=== PATIENT | male | born 1960 | race Asian ===

== ENCOUNTER 2020-07-28 19:58 | Emergency (ER) | payer OTHER, MEDICAID ==
[~2020-07-28] VITALS: Ht 167.6 cm; Wt 72.6 kg
[2020-07-28 20:00] VITALS: BP_SYST 148
[2020-07-28] MEDS ORDERED: DEXTROSE 50% JECT 50 ML DISP.SYRIN IVP ONE (20:15)
[2020-07-28 20:25] LABS: BASOPHILS # (AUTO) 0.1 K/uL (0.0-0.2); BASOPHILS % (AUTO) 1.3 % (0.0-2.0); EOSINOPHILS # (AUTO) 0.4 K/uL (0.0-0.4); EOSINOPHILS % (AUTO) 9.2 % (0.0-4.0); HEMATOCRIT 34.2 % (36-54); HEMOGLOBIN 11.1 g/dL (14.0-18.0); LYMPHOCYTES # (AUTO) 1.1 K/uL (1.0-5.5); LYMPHOCYTES % (AUTO) 23.2 % (20.5-51.5); MEAN CORPUSCULAR HEMOGLOBIN 26 pg (27-31); MEAN CORPUSCULAR HGB CONC 33 % (32-36); MEAN CORPUSCULAR VOLUME 79 fL (79.0-98.0); MONOCYTES # (AUTO) 0.4 K/uL (0.0-1.0); MONOCYTES % (AUTO) 7.8 % (1.7-9.3); NEUTROPHILS # (AUTO) 2.8 K/uL (1.8-7.7); NEUTROPHILS % (AUTO) 58.5 % (40.0-70.0); PLATELET COUNT (AUTO) 139 K/uL (130-430); RED BLOOD CELL COUNT(AUTO) 4.36 MIL/uL (4.2-6.2); WHITE BLOOD COUNT (AUTO) 4.8 K/uL (4.8-10.8)
[2020-07-28 20:45] LABS: CALCIUM 7.8 mg/dL (8.4-11.0); CREATININE 3.71 mg/dL (0.55-1.30); POTASSIUM 4.3 mmol/L (3.5-5.1)
[2020-07-28 20:51] LABS: ALBUMIN 3.5 g/dL (3.4-4.8); TOTAL BILIRUBIN 0.2 mg/dL (0.0-1.0)
[2020-07-28 21:34] LABS: BILIRUBIN,URINE NEGATIVE (NEGATIVE); BLOOD, URINE 1+ (NEGATIVE); CLARITY/URINE CLEAR (CLEAR); COLOR,URINE YELLOW (YELLOW); GLUCOSE,URINE NEGATIVE (NEGATIVE); KETONES,URINE NEGATIVE (NEGATIVE); LEUKOCYTE ESTERASE ,URINE NEGATIVE (NEGATIVE); NITRITE, URINE NEGATIVE (NEGATIVE); PROTEIN URINE 2+ (NEGATIVE); UROBILINOGEN,URINE 0.2 (0.2-1.0)
[2020-07-28 21:54] LABS: BACTERIA,URINE FEW /HPF (None Seen); RBC,URINE 0-3 /HPF (0-3)
[2020-07-28 21:58] LABS: MUCUS,URINE None Seen /LPF (None Seen)
[2020-07-28 21:59] LABS: FINE GRANULAR CASTS,URINE 0-10 /LPF (None Seen)
[2020-07-28 22:42] VITALS: BP_SYST 126
== END 2020-07-28 22:42 | disposition home or self-care (01) ==
LOC: SED 19:58
DX: E11.649 Type 2 diabetes mellitus with hypoglycemia without coma (principal); N28.9 Disorder of kidney and ureter, unspecified; I10 Essential (primary) hypertension
CPT/HCPCS: 36415; 71045; 80053; 81000-TC; 82962; 83605; 83880; 84484; 85025; 87040-TC; 87086; 93005; 96374; 99285

== ENCOUNTER 2021-05-28 07:40 | Emergency (ER) | payer OTHER, MEDICAID ==
[~2021-05-28] VITALS: Ht 162.6 cm; Wt 61.2 kg
[2021-05-28 07:44] VITALS: BP_SYST 122
[2021-05-28] MEDS ORDERED: FERR210T PO (08:02)
[2021-05-28] MEDS ORDERED: TRAZ-251 PO (08:02)
[2021-05-28] MEDS ORDERED: ATEN50TA PO (08:02)
[2021-05-28] MEDS ORDERED: SODI650T PO (08:02)
[2021-05-28] MEDS ORDERED: TAMS-11 PO (08:02)
[2021-05-28] MEDS ORDERED: NOR10 PO (08:02)
[2021-05-28] MEDS ORDERED: MORPHINE 2 MG/ML INJ. SYRINGE IVP ONE ×2 (08:15→08:45)
[2021-05-28 08:18] LABS: BASOPHILS % (AUTO) 0.3 % (0.0-2.0); HEMATOCRIT 27.3 % (36-54); HEMOGLOBIN 8.7 g/dL (14.0-18.0); LYMPHOCYTES # (AUTO) 0.5 K/uL (1.0-5.5); LYMPHOCYTES % (AUTO) 4.6 % (20.5-51.5); MEAN CORPUSCULAR HEMOGLOBIN 25 pg (27-31); MEAN CORPUSCULAR HGB CONC 32 % (32-36); MEAN CORPUSCULAR VOLUME 80 fL (79.0-98.0); MONOCYTES # (AUTO) 0.8 K/uL (0.0-1.0); MONOCYTES % (AUTO) 6.6 % (1.7-9.3); NEUTROPHILS # (AUTO) 10.3 K/uL (1.8-7.7); NEUTROPHILS % (AUTO) 88.5 % (40.0-70.0); PLATELET COUNT (AUTO) 101 K/uL (130-430); RED BLOOD CELL COUNT(AUTO) 3.43 MIL/uL (4.2-6.2); RED CELL DISTRIBUTION WIDTH 15.3 % (9.0-15.0); WHITE BLOOD COUNT (AUTO) 11.6 K/uL (4.8-10.8)
[2021-05-28 08:29] LABS: ANION GAP 16 (5-15); CALCIUM 7.4 mg/dL (8.4-11.0); CHLORIDE 92 mmol/L (98-107); CREATININE 4.96 mg/dL (0.55-1.30); GLUCOSE 387 mg/dL (70-99); POTASSIUM 3.5 mmol/L (3.5-5.1); SODIUM SERUM 132 mmol/L (136-145); UREA NITROGEN, BLOOD 58 mg/dL (8-21)
[2021-05-28 08:31] LABS: GFR AFRICAN AMERICAN 15 mL/min (>90)
[2021-05-28 08:33] LABS: INR 1.3 (0.80-1.20); PROTHROMBIN TIME 13.3 SECS (9.5-12.5)
[2021-05-28 08:36] LABS: ALANINE AMINOTRANSFERASE 19 U/L (12-78); ALBUMIN 2.6 g/dL (3.4-4.8); ASPARTATE AMINOTRANSFERASE 13 U/L (10-37); TOTAL BILIRUBIN 0.4 mg/dL (0.0-1.0)
[2021-05-28 08:53] LABS: ACETONE, SERUM NEGATIVE (NEGATIVE)
[2021-05-28] MEDS ORDERED: LEVO750T45 PO (08:55)
[2021-05-28] MEDS ORDERED: HYDR-3917 PO (08:55)
[2021-05-28] MEDS ORDERED: LEVOFLOXACIN IN DEXTROSE 5 % 100 ML IV ONE (09:30)
[2021-05-28 09:50] LABS: BILIRUBIN,URINE NEGATIVE (NEGATIVE); BLOOD, URINE 2+ (NEGATIVE); CLARITY/URINE CLEAR (CLEAR); COLOR,URINE YELLOW (YELLOW); GLUCOSE,URINE 3+ (NEGATIVE); KETONES,URINE NEGATIVE (NEGATIVE); LEUKOCYTE ESTERASE ,URINE NEGATIVE (NEGATIVE); NITRITE, URINE NEGATIVE (NEGATIVE); PH,URINE 5.5 (5.0-8.0); PROTEIN URINE 2+ (NEGATIVE); UROBILINOGEN,URINE 0.2 (0.2-1.0)
[2021-05-28] MEDS ORDERED: HYDROcodone/ACETAMIN 5-325 MG TAB (NORCO/ VICODIN) PO ONE (10:00)
[2021-05-28 10:02] LABS: BACTERIA,URINE FEW /HPF (None Seen); MUCUS,URINE 1+ /LPF (None Seen); URINE AMORPHOUS URATE 1+ /HPF (None Seen)
[2021-05-28 10:30] VITALS: BP_SYST 124
== END 2021-05-28 10:30 | disposition home or self-care (01) ==
LOC: SED 07:40
DX: J18.9 Pneumonia, unspecified organism (principal); I10 Essential (primary) hypertension; E11.9 Type 2 diabetes mellitus without complications; Z79.899 Other long term (current) drug therapy
CPT/HCPCS: 36415; 71045; 80053; 81000; 82009; 82550; 83605; 84484; 85025; 85610; 85730; 87040; 87086; 93005; 96374; 96376; 99285; J1956; J2270; 87186-TC

== ENCOUNTER 2021-05-29 06:53 | Inpatient (IN) | payer OTHER, MEDICAID, SELFPAY ==
[~2021-05-29] VITALS: Ht 170.2 cm; Wt 69.5 kg
[~2021-05-29 06:53] MED LIST: ATEN50TA PO; FERR210T PO; HYDR-3917 PO; LEVO750T45 PO; NOR10 PO; SODI650T PO; TAMS-11 PO; TRAZ-251 PO
--- NOTE | 2021-05-29 06:55 | NUR ---
Placed in room 3 . Placed on press feeder broomcorn, blood pressure machine and pulse oximeter. To gown for exam. Side rails up.
--- NOTE | 2021-05-29 07:00 | NUR ---
Pt bib EMS from home with c/o generalized weakness, per EMS glucose at home was in the 30's, d50 given in route. Other v/s stable, no acute distress noted.
--- NOTE | 2021-05-29 07:05 | NUR ---
ER Dr. Leal at bedside examining patient.
[2021-05-29 07:08] VITALS: BP_SYST 97
--- NOTE | 2021-05-29 07:08 | NUR ---
Radiology at bedside for CXR.
[2021-05-29 07:28] LABS: BASOPHILS # (AUTO) 0.1 K/uL (0.0-0.2); BASOPHILS % (AUTO) 0.7 % (0.0-2.0); EOSINOPHILS # (AUTO) 0.1 K/uL (0.0-0.4); LYMPHOCYTES # (AUTO) 0.8 K/uL (1.0-5.5); LYMPHOCYTES % (AUTO) 7.2 % (20.5-51.5); MEAN CORPUSCULAR HEMOGLOBIN 26 pg (27-31); MEAN CORPUSCULAR HGB CONC 32 % (32-36); MEAN CORPUSCULAR VOLUME 80 fL (79.0-98.0); NEUTROPHILS # (AUTO) 8.5 K/uL (1.8-7.7); NEUTROPHILS % (AUTO) 81.1 % (40.0-70.0); PLATELET COUNT (AUTO) 83 K/uL (130-430); WHITE BLOOD COUNT (AUTO) 10.5 K/uL (4.8-10.8)
[2021-05-29] MEDS ORDERED: DEXTROSE 50% JECT 50 ML DISP.SYRIN IVP ONE (07:30)
[2021-05-29 07:41] LABS: ANION GAP 9 (5-15); CHLORIDE 102 mmol/L (98-107); CREATININE 3.68 mg/dL (0.55-1.30); GLUCOSE 78 mg/dL (70-99); SODIUM SERUM 143 mmol/L (136-145); UREA NITROGEN, BLOOD 40 mg/dL (8-21)
[2021-05-29 07:43] LABS: GFR AFRICAN AMERICAN 22 mL/min (>90); POTASSIUM 2.8 mmol/L (3.5-5.1)
[2021-05-29 07:46] LABS: ALANINE AMINOTRANSFERASE 24 U/L (12-78); ALBUMIN 2.3 g/dL (3.4-4.8); TOTAL BILIRUBIN 0.5 mg/dL (0.0-1.0)
[2021-05-29 07:52] LABS: ASPARTATE AMINOTRANSFERASE 50 U/L (10-37)
[2021-05-29 08:08] LABS: ACETONE, SERUM NEGATIVE (NEGATIVE)
--- NOTE | 2021-05-29 08:19 | NUR ---
Med rec and belongings list completed. Pt's son at bedside and aware of admit.
[2021-05-29 08:22] LABS: C-REACTIVE PROTEIN QUANT 97.8 mg/dL (0-0.5)
--- NOTE | 2021-05-29 08:23 | NUR ---
Admit orders received from Dr. Silveira pt to go to Tele. Charge nurse Marnie, will call us back with bed assignment.
--- NOTE | 2021-05-29 09:01 | NUR ---
Patient will be admitted to care of Dr Silveira. Admitted to tele unit. Will go to room 100A. Belongings list completed. Complete and up to date summary report printed. SBAR report to be given at bedside with opportunity for questions.
[2021-05-29 09:27] VITALS: BP_SYST 153
--- NOTE | 2021-05-29 10:42 | NUR ---
Nutrition Update Sher Scale 16 noted. Pt admitted for hypoglycemia. Diet: renal BMI: 25.1 kg/m2 RD to follow per nutrition care standards.
[2021-05-29 12:00] VITALS: BP_SYST 102
--- NOTE | 2021-05-29 12:22 | NUR ---
ATTENDING MD DR SUMMERS WAS CALLED, RE: PAIN MEDICATION. SPOKE TO JU.
[2021-05-29] MEDS ORDERED: HYDROcodone/ACETAMIN 5-325 MG TAB (NORCO/ VICODIN) PO PRN ×2 (13:15→14:00)
--- NOTE | 2021-05-29 13:23 | NUR ---
BS=74
--- NOTE | 2021-05-29 13:25 | NUR ---
CONSULTATION: REASON FOR CONSULT: NEPHRO CONSULTING PHYSICIAN: CESAR ORDERED BY: KRISTOPHER SPOKE WITH KECIA FROM EXCHANGE [phone]
[2021-05-29] MEDS ORDERED: cloNIDine HCL 0.1 MG TABLET PO PRN (14:00)
[2021-05-29] MEDS ORDERED: NALOXONE HCL 0.4 MG/ML AMP (NARCAN) IVP PRN (14:00)
[2021-05-29] MEDS ORDERED: POTASSIUM CHLORIDE 20 MEQ TAB.PRT.SR PO ONE (14:00)
[2021-05-29] MEDS ORDERED: SODIUM BICARBONATE 650 MG TABLET PO ONE (14:00)
[2021-05-29] MEDS ORDERED: TAMSULOSIN HCL 0.4 MG CAP PO ONE (14:15)
--- NOTE | 2021-05-29 14:32 | NUR ---
CONSULTATION: REASON FOR CONSULT: ELEV TROP CONSULTING PHYSICIAN: LESTER ORDERED BY: KRISTOPHER SPOKE WITH SCOTTY [phone]
[2021-05-29] MEDS ORDERED: DEXTROSE 50% JECT 50 ML DISP.SYRIN IVP PRN (14:45)
[2021-05-29] MEDS ORDERED: DILTIAZEM HCL 30 MG TABLET PO ONE (15:15)
--- NOTE | 2021-05-29 15:28 | NUR ---
CONSULTATION: REASON FOR CONSULT: WEAKNESS CONSULTING PHYSICIAN: EDER ORDERED BY: KRISTOPHER SPOKE WITH SHERRI [phone]
[2021-05-29 16:00] VITALS: BP_SYST 94
--- NOTE | 2021-05-29 17:30 | NUR ---
Note Pt came to floor from ED at 0915am via gurney. Pt was moved to bed from [facility] with3 person assist. Pt was oriented to room and nursing routines and procedures. Pt was seen by Dr Silveira [address] Hsu at 1725 at bedside. Pt's son and have been visiting at bedside throughout the shift. No needs noted all shift. Pt's tele unit was attached at admission to floor/room at 0915am. Pt's IV in NOÉ on admission to ED. Pt has urinal at bedside throughout the shift. Pt feels weak and dizzy on sitting up in bed or ambulating - states he has fallen the last few days at home. Skin intact throughout body on admission to floor. Pt oriented to call light and call light within reach all shift. Pt's bed in low position and bed alarm on all shift.
--- NOTE | 2021-05-29 18:36 | NUR ---
PAGE PAGED DOCTOR HENRIQUEZ
--- NOTE | 2021-05-29 18:40 | NUR ---
NOTE Dr Wolf at bedside assessing pt. Order for [place] 7.5mg PO q4' given as pt in severe pain at this time. Pt attempting to eat his dinner at this time. 3 family members at bedside. Pt stable and pt was checked on q1' and PRN all shift for needs and care. Call light within reach.
[2021-05-29] MEDS: HYDROcodone/ACETAMIN 7.5-325 MG TAB PO PRN ×2 (18:45→22:46)
[2021-05-29] MEDS: NEPHROVITE, (FOLIC ACID/VITAMIN B COMP W-C 1 TAB) PO SCH (18:45)
--- NOTE | 2021-05-29 19:00 | NUR ---
Note Pt resting in bed with family at bedside. No needs noted. Pt aware he will be going down to CT dept for scans. Pt was checked on q1' and PRN all shift for needs and care. Pt's bed low position all shift. Call light within reach
--- NOTE | 2021-05-29 19:30 | NUR ---
OPENING NOTES: Received report from dayshift nurse. Patient is resting in bed, alert and oriented and with no s/s of distress or discomfort. He is on room air, appears to be tolerating well. Ensured all safety precautions. Bed is locked and in the lowest position. Call light within reach and alarm on.
[2021-05-29 20:00] VITALS: BP_SYST 103
--- NOTE | 2021-05-29 20:30 | NUR ---
PATIENT DID NOT EAT DINNER. EDUCATED PATIENT ABOUT THE IMPORTANCE OF EATING TO PREVENT HYPOGLYCEMIA. ENCOURAGED PATIENT TO EAT PUDDING AND APPLE SAUCE. PT HAD ABOUT 25% AND DRANK SOME CHOCOLATE MILK THAT WAS BROUGHT IN. PT DECLINED TO EAT MORE, STATES HE IS NOT HUNGRY.
[2021-05-29] MEDS ORDERED: SODIUM BICARBONATE 650 MG TABLET PO SCH (21:00)
[2021-05-29] MEDS: ATENOLOL 50 MG TABLET (TENORMIN) PO SCH (21:00)
[2021-05-29] MEDS ORDERED: DILTIAZEM HCL 30 MG TABLET PO SCH (21:00)
--- NOTE | 2021-05-29 21:00 | NUR ---
DIALYSIS NURSE AT BEDSIDE
--- NOTE | 2021-05-29 22:49 | NUR ---
PT'S BG WAS 78. HE IS ASYMPTOMATIC AND HAVING DIALYSIS. ENCOURAGED PATIENT TO HAVE SNACKS BUT HE STATES HE WILL ONLY DRINK HIS CHOCOLATE MILK. WILL CONTINUE TO EDUCATE AND ENCOURAGE PATIENT.
--- NOTE | 2021-05-29 23:40 | NUR ---
HIGH ALERT NOTE: Called Dr. Hsu back at [phone] identified within the medical roster to verify physician authenticity.
[2021-05-29] MEDS ORDERED: HEPARIN IV FLUSH 300 UNITS/3ML SYR INJ ONE (23:45)
[2021-05-29] MEDS ORDERED: HEPARIN SODIUM, PORCINE 10,000 UNITS/ 10 ML VIAL ONE (23:54)
[2021-05-30] VITALS: BP_SYST 122
--- NOTE | 2021-05-30 | NUR ---
PT TOLERATED DIALYSIS WELL. PER DIALYSIS NURSE PT WAS TO HAVE CLEANING ONLY AND NO OUTPUT. HE IS RESTING IN BED WITH NO S/S OF DISTRESS OR DISCOMFORT. WILL CONTINUE TO MONITOR.
--- NOTE | 2021-05-30 03:53 | NUR ---
PT'S BG IS 42. D50 WAS GIVEN AND GAVE PATIENT APPLE SAUCE. WILL RECHECK BLOOD SUGAR.
[2021-05-30] MEDS: HYDROcodone/ACETAMIN 7.5-325 MG TAB PO PRN ×3 (05:41→20:01)
[2021-05-30 06:44] LABS: BASOPHILS % (AUTO) 0.1 % (0.0-2.0); EOSINOPHILS % (AUTO) 0.4 % (0.0-4.0); HEMATOCRIT 27.7 % (36-54); HEMOGLOBIN 9.1 g/dL (14.0-18.0); LYMPHOCYTES # (AUTO) 0.5 K/uL (1.0-5.5); LYMPHOCYTES % (AUTO) 6.3 % (20.5-51.5); MEAN CORPUSCULAR HEMOGLOBIN 26 pg (27-31); MEAN CORPUSCULAR HGB CONC 33 % (32-36); MEAN CORPUSCULAR VOLUME 79 fL (79.0-98.0); MONOCYTES # (AUTO) 0.5 K/uL (0.0-1.0); MONOCYTES % (AUTO) 6.4 % (1.7-9.3); NEUTROPHILS # (AUTO) 7.4 K/uL (1.8-7.7); NEUTROPHILS % (AUTO) 86.8 % (40.0-70.0); PLATELET COUNT (AUTO) 75 K/uL (130-430); RED CELL DISTRIBUTION WIDTH 16.2 % (9.0-15.0); WHITE BLOOD COUNT (AUTO) 8.5 K/uL (4.8-10.8)
--- NOTE | 2021-05-30 07:02 | NUR ---
CLOSING NOTES: Patient is laying in bed, alert and oriented. Son is at bedside. He is in stable condition. BG this morning was 128 this morning. I encouraged and reminded patient to eat, he verbalized understanding. Patient ate apple sauce and pudding, tolerated well. All needs were me throughout shift. Will endorse to dayshift nurse.
[2021-05-30 07:59] LABS: CALCIUM 7.6 mg/dL (8.4-11.0); CREATININE 2.77 mg/dL (0.55-1.30); PHOSPHORUS 2.9 mg/dL (2.7-4.5); POTASSIUM 3.1 mmol/L (3.5-5.1)
[2021-05-30 08:00] VITALS: BP_SYST 120
[2021-05-30] MEDS ORDERED: POTASSIUM CHLORIDE 20 MEQ/PKT PACKET PO ONE (08:30)
[2021-05-30] MEDS ORDERED: amLODIPine BESYLATE 10 MG TABLET PO SCH (09:00)
[2021-05-30] MEDS: ATENOLOL 50 MG TABLET (TENORMIN) PO SCH ×2 (09:00→23:41)
[2021-05-30 09:36] LABS: TOTAL IRON BIND. CAPACITY 91 ug/dL (250-450)
[2021-05-30] MEDS: TAMSULOSIN HCL 0.4 MG CAP PO SCH (09:58)
--- NOTE | 2021-05-30 09:58 | NUR ---
CONSULTATION PAGED/CALLED Reason for Consultation: swallow eval Person Who was Notified:speech therapy called Gracy Ordering Physician: patel elder
[2021-05-30] MEDS: NEPHROVITE, (FOLIC ACID/VITAMIN B COMP W-C 1 TAB) PO SCH (09:59)
[2021-05-30 11:19] VITALS: BP_SYST 112
--- NOTE | 2021-05-30 14:51 | NUR ---
S.T. SWALLOW EVAL SWALLOW EVAL COMPLETED. PT PRESENTS W/ MOD ORAL DYSPHAGIA W/ PROLONGED AND LABORED MASTICATION RESULTING IN ORAL RESIDUE FOR SOLIDS. FUNCTIONAL PHARYNGEAL SWALLOW W/ NO S/S OF ASPIRATION. PT C/O FOOD NOT PASSING; HE WOULD VOLITIONALLY THROAT CLEAR OR COUGH TO ATTEMPT TO CLEAR BOLUS. PT ALSO C/O PAIN IN CHEST AFTER SWALLOW. ESOPHAGEAL DYSPHAGIA SUSPECTED. REC: MECH SOFT FINELY CHOPPED DIET. THIN LIQUIDS OK. CONSIDER ESOPHAGRAM TO FURTHER ASSESS ESOPHAGEAL SWALLOW (PER PT AND , PT DECLINES EGD). NURSE ASHLEY NOTIFIED.
[2021-05-30 15:22] VITALS: BP_SYST 119
--- NOTE | 2021-05-30 15:59 | NUR ---
Dietitian Recommendations * Recommend CCHO, mechanical soft, finely chopped diet w/ Nepro BID (ONS provides 850 kcal/day, 38 gm protein/day) * Encourage increase PO intakes LP, RD Please refer to Nutrition Assessment for details. Addendum: 05/30/21 at [address] Amended: Links added.
[2021-05-30] MEDS ORDERED: EPOETIN ALFA 10,000 UNITS/ML VIAL SUBCUT PRN (17:45)
--- NOTE | 2021-05-30 17:58 | NUR ---
CONSULTATION PAGED/CALLED Reason for Consultation: septisemia Person Who was Notified: JOHN SAID DR MODI REGISTRATION SCHEDULING SPECIALIST Consulting Physician: SHIMON SON Risk Modeler Specialty: INFECTIOUS DISEASE Ordering Physician: MADELIN SUMMERS
[2021-05-30] MEDS ORDERED: VANCOMYCIN HCL 500 MG in NS 100 ML IV ONE (18:00)
[2021-05-30] MEDS ORDERED: DEXTROSE 50% JECT 50 ML DISP.SYRIN IVP PRN (18:45)
[2021-05-30 19:00] VITALS: BP_SYST 127
--- NOTE | 2021-05-30 19:15 | NUR ---
change of shift.pt.presents hemo-dialysis session;awaiting.h/d nsg attending to pt.119-a. pt's family present.i have apprised the family of the tentative hour for h/d session.pt.presents perma-cath;location:rt.svc.intact.pt.presents iv access:location:lt.bicept.iv lock.pt.presents no av-shunts.old.i have performed tactile assessment upper extremities for evidence of absence av-shunts.pt.presents bedrest activity status.pt.stated he is anuric urinal w/in access of the pt.call light/telephone w/in access of the pt.
[2021-05-30 20:00] VITALS: BP_SYST 127
--- NOTE | 2021-05-30 20:00 | NUR ---
pt.assessed.v/s assessed values w/in normal limits.no c/o pain,nausea.iv access intact.urinal w/in access of the pt.i have apprised the pt.that snacks/beverages are available w/in the shift.pt.requested jello/apple juice provided to the pt.pt.capable to reposition self.urinal w/in access of the pt.i have inquired ofthe h/d nsg approximately hour of the h/d:100-a session.possible w/in the hour.i have apprised the pt.and family.call light/telephone w/in access of the pt.
--- NOTE | 2021-05-30 20:45 | NUR ---
pt;100-a h/d session has been iniated@this hour.
--- NOTE | 2021-05-30 21:00 | NUR ---
i have held the 2100 medications 2/t in progress h/d session.pt.requested additional jellos. provided to the pt.
--- NOTE | 2021-05-30 22:00 | NUR ---
pt.assessed.h/d session in progress.no c/o pain,nausea,no requests posited@this hour.urinal,call light/telephone w/in access of the pt.pt.capable to reposition self.
[2021-05-30] MEDS: HEPARIN SODIUM, PORCINE 10,000 UNITS/ 10 ML VIAL MC ONE ×2 (23:15→23:21)
[2021-05-30] MEDS: EPOETIN ALFA 10,000 UNITS/ML VIAL SUBCUT SCH ×2 (23:15→23:40)
--- NOTE | 2021-05-30 23:22 | NUR ---
HIGH ALERT NOTE: Called Dr. Ha back at [phone] identified within the medical roster to verify physician authenticity.
--- NOTE | 2021-05-30 23:30 | NUR ---
h/d session completed.2 litres exchanged.v/s assessed note b/p slight elevated status.
[2021-05-30] MEDS: traZODone HCL 50 MG TABLET (DESYREL) PO SCH ×2 (23:41)
[2021-05-30] MEDS: INSULIN REGULAR, HUMAN 100 UNITS/ML, 10 ML VIAL (humuLIN R) SUBCUT PRN (23:44)
--- NOTE | 2021-05-31 | NUR ---
pt.asSessed.v/s assessed values wnl.i have administered [id number];procrit;sq;due@1800p,vancomycin;abx ivpb due @1800p blood glucose ASsessed VALUE;272MG/dL.I HAVe ADminisTeRed 4-UNITS;REGUlAR ,\\ INSulIN. URINAL CALLIGHT/TELePHOINE W/IN ACCESS OF THe PT.
[2021-05-31 00:03] VITALS: BP_SYST 132
--- NOTE | 2021-05-31 01:45 | NUR ---
@approximately 0130a pt.was located on floor in pt's room per frank;cole.frank;mt was walking w/in the hallway and noted the pt's calling for assistance.frank noted pt.upon the floor.frank called for assistance.from the staff.ladarius;rn/dean,amy;ariadna strange;db tabares;rn, arrived to assist pt's return to bed.pt.assessed for injury/trauma.pt.absent skin trauma/contusions.pt.stated he was attempted to call someone via phone also assumed he was not in the correct pt.room.i telephoned /pt's ;savanah.apprised of the pt's fall absnt skin trauma,mcontison.no orders posited per .pt's savanah was apprised of the pt's.fall.fall interventions initiated:post fall huddle,post fall assessment,rir fall report.v/s assessed values w/in normal limits.note b/p wnl.02-sat%=96%@room air.
--- NOTE | 2021-05-31 02:00 | NUR ---
pt.assessed.pt.was transferred to room;105-a.pt. re-oriented to the new room.no c/o pain.no requests posited@his hour. pt.repositioned.pt.alerted to the call light/telephone placement w/in access of the pt.the urinal placed w/in access of the pt.
--- NOTE | 2021-05-31 02:15 | NUR ---
pt.assessed.pt.presents quiescent affect;calm,somnolent.per flacc pain mgx pt.absent facial grimaces/body posturing. call light/telephone,urinal w/in access of the pt.
--- NOTE | 2021-05-31 04:00 | NUR ---
pt.assessed pt.presents quiescent affect;somnolent.per flacc pain mgx pt.absent facial grimaces/body posturing. iv access intact iv fluids ns-flush infusing.pt.capable to reposition self.urinal,call light/telephone w/in access of the pt.
--- NOTE | 2021-05-31 06:00 | NUR ---
pt.assessed.pt.presents quiescent affect;somnolent.per flacc pain mgx pt.absent facial grimaces/body posturing.iv access Intact IV FlUIDS INFusing. NURPT.PT.capable to reposition self. urinal,call light/telephone w/in access of the pt.
--- NOTE | 2021-05-31 06:41 | NUR ---
blopod glucose assessed value;198mg/dl.per sliding scale no insulin required.
[2021-05-31 07:01] LABS: BASOPHILS % (AUTO) 0.2 % (0.0-2.0); EOSINOPHILS # (AUTO) 0.1 K/uL (0.0-0.4); EOSINOPHILS % (AUTO) 0.6 % (0.0-4.0); HEMATOCRIT 26.8 % (36-54); HEMOGLOBIN 8.7 g/dL (14.0-18.0); LYMPHOCYTES # (AUTO) 0.7 K/uL (1.0-5.5); LYMPHOCYTES % (AUTO) 7.1 % (20.5-51.5); MEAN CORPUSCULAR HEMOGLOBIN 26 pg (27-31); MEAN CORPUSCULAR HGB CONC 32 % (32-36); MEAN CORPUSCULAR VOLUME 80 fL (79.0-98.0); MONOCYTES # (AUTO) 0.7 K/uL (0.0-1.0); MONOCYTES % (AUTO) 7.5 % (1.7-9.3); NEUTROPHILS # (AUTO) 8.2 K/uL (1.8-7.7); NEUTROPHILS % (AUTO) 84.6 % (40.0-70.0); PLATELET COUNT (AUTO) 74 K/uL (130-430); RED BLOOD CELL COUNT(AUTO) 3.37 MIL/uL (4.2-6.2); RED CELL DISTRIBUTION WIDTH 15.8 % (9.0-15.0); WHITE BLOOD COUNT (AUTO) 9.7 K/uL (4.8-10.8)
[2021-05-31 07:30] LABS: ALBUMIN 1.9 g/dL (3.4-4.8); CALCIUM 7.6 mg/dL (8.4-11.0); CREATININE 2.83 mg/dL (0.55-1.30); POTASSIUM 3.6 mmol/L (3.5-5.1); TOTAL BILIRUBIN 0.4 mg/dL (0.0-1.0)
[2021-05-31 08:00] VITALS: BP_SYST 121
[2021-05-31] MEDS ORDERED: BARIUM SULFATE 135 ML SUSP.RECON (E-Z-HD) PO ONE (10:03)
[2021-05-31] MEDS: HYDROcodone/ACETAMIN 7.5-325 MG TAB PO PRN ×2 (10:15→18:02)
[2021-05-31] MEDS: NEPHROVITE, (FOLIC ACID/VITAMIN B COMP W-C 1 TAB) PO SCH (10:16)
[2021-05-31] MEDS: ATENOLOL 50 MG TABLET (TENORMIN) PO SCH ×2 (10:18→21:36)
[2021-05-31] MEDS: TAMSULOSIN HCL 0.4 MG CAP PO SCH (10:18)
[2021-05-31] MEDS: INSULIN REGULAR, HUMAN 100 UNITS/ML, 10 ML VIAL (humuLIN R) SUBCUT PRN ×3 (12:27→21:39)
[2021-05-31] MEDS ORDERED: VANCOMYCIN HCL 1,000 MG in NS 250 ML IV ONE (14:00)
[2021-05-31 15:20] VITALS: BP_SYST 123
--- NOTE | 2021-05-31 18:04 | NUR ---
ATTENDING MD DR SUMMERS WAS CALLED, RE: PAIN MED. SPOKE TO YASMIN.
[2021-05-31 20:00] VITALS: BP_SYST 132
[2021-05-31] MEDS: traZODone HCL 50 MG TABLET (DESYREL) PO SCH ×2 (21:00→21:36)
--- NOTE | 2021-05-31 22:19 | NUR ---
Desyrel 100 mg po patient refuse medication .
--- NOTE | 2021-05-31 22:20 | NUR ---
FALL Risk protocol bed ALARM is on patient awake alert family member @ the bedside procedures explained .
--- NOTE | 2021-05-31 22:37 | NUR ---
BED ALARM is on & working , patient awake call ventura with patient .
[2021-05-31] MEDS: HYDROcodone/ACETAMIN 5-325 MG TAB (NORCO/ VICODIN) PO PRN (23:17)
--- NOTE | 2021-06-01 00:46 | NUR ---
[place] 5/325 mg po given for general pain & helpful .
[2021-06-01 00:48] VITALS: BP_SYST 129
--- NOTE | 2021-06-01 01:17 | NUR ---
Hourly Rounding patient awake verbally Responsive , BED ALARM is ON fall measures effective continue to monitor .
[2021-06-01] MEDS: HYDROcodone/ACETAMIN 5-325 MG TAB (NORCO/ VICODIN) PO PRN (04:04)
--- NOTE | 2021-06-01 04:06 | NUR ---
PT CALLED AND C/O GENERALIZED PAIN TO HIS NECK BACK KNEES , MEDICATED WITH NORCO PER ORDER . PT SI ABLE TO SWALLOW WELL . NO S/S OF ANY ASPIRATION NOTICED. WILL CONTINUE TO MONITOR PT .
[2021-06-01] MEDS: INSULIN NPH 100 UNITS/ML 10 ML VIAL SUBCUT SCH (06:12)
[2021-06-01] MEDS: INSULIN REGULAR, HUMAN 100 UNITS/ML, 10 ML VIAL (humuLIN R) SUBCUT PRN ×4 (06:13→21:25)
[2021-06-01 06:55] LABS: BASOPHILS % (AUTO) 0.2 % (0.0-2.0); EOSINOPHILS # (AUTO) 0.2 K/uL (0.0-0.4); EOSINOPHILS % (AUTO) 2.1 % (0.0-4.0); HEMATOCRIT 27.3 % (36-54); HEMOGLOBIN 8.8 g/dL (14.0-18.0); LYMPHOCYTES % (AUTO) 9.5 % (20.5-51.5); MEAN CORPUSCULAR HEMOGLOBIN 26 pg (27-31); MEAN CORPUSCULAR HGB CONC 32 % (32-36); MEAN CORPUSCULAR VOLUME 79 fL (79.0-98.0); MONOCYTES # (AUTO) 0.7 K/uL (0.0-1.0); MONOCYTES % (AUTO) 6.7 % (1.7-9.3); NEUTROPHILS # (AUTO) 8.5 K/uL (1.8-7.7); NEUTROPHILS % (AUTO) 81.5 % (40.0-70.0); PLATELET COUNT (AUTO) 90 K/uL (130-430); RED BLOOD CELL COUNT(AUTO) 3.44 MIL/uL (4.2-6.2); WHITE BLOOD COUNT (AUTO) 10.4 K/uL (4.8-10.8)
[2021-06-01 07:21] LABS: CREATININE 4.27 mg/dL (0.55-1.30); POTASSIUM 4.1 mmol/L (3.5-5.1)
[2021-06-01 07:26] LABS: CALCIUM 6.9 mg/dL (8.4-11.0)
--- NOTE | 2021-06-01 07:35 | NUR ---
OPENING NOTES: RECEIVED PATIENT FROM MACHINIST 2ND SHIFT NURSE. PATIENT IS AWAKE LAYING DOWN IN BED. TOLERATED OXYGEN ON ROOM AIR WITH NO DISTRESS NOTED. IV LINE PATENT AND INTACT NO INFILTRATION NOTED. PATIENT STABLE AT THIS TIME. SAFETY, FALL, AND ASPIRATION PRECAUTIONS ARE IN PLACE. BED LOCKED IN LOWEST POSITION AND CALL LIGHT IN REACH. WILL CONTINUE TO MONITOR PATIENT FOR ANY CHANGES.
[2021-06-01 08:00] VITALS: BP_SYST 116
--- NOTE | 2021-06-01 08:16 | NUR ---
PAGED PAGED MADELIN SALEEM AT [phone] SPOKE WITH JOSE.
[2021-06-01] MEDS: TAMSULOSIN HCL 0.4 MG CAP PO SCH (08:17)
[2021-06-01] MEDS: NEPHROVITE, (FOLIC ACID/VITAMIN B COMP W-C 1 TAB) PO SCH (08:18)
[2021-06-01] MEDS: ATENOLOL 50 MG TABLET (TENORMIN) PO SCH ×2 (08:18→21:07)
[2021-06-01] MEDS: HYDROcodone/ACETAMIN 7.5-325 MG TAB PO PRN ×4 (08:19→21:08)
[2021-06-01] MEDS ORDERED: CHOLECALCIFEROL (VITAMIN D3) 2,000 UNIT TABLET PO ONE (10:15)
[2021-06-01 11:27] VITALS: BP_SYST 130
--- NOTE | 2021-06-01 11:27 | NUR ---
CONSULTATION PAGED/CALLED Reason for Consultation: [] dysphagia Person Who was Notified: [] Iraj Consulting Physician: [] Dr Mathis Stock Analyst Specialty: [] GI Ordering Physician: [] Dr Silveira
--- NOTE | 2021-06-01 11:57 | NUR ---
CM note: Discussed dcp to snf with pt. He agreed with snf per contracted insurance. Stated his and his son would not be able to help him . He wants to get stronger and able to walk better before going home. >> Faxed the dc order to [facility] dept tel , fax [phone]. >> Faxed the referral package to [facility], and [facility] attn admission dept. Addendum: 06/08/21 at 1534 by Genesis Palma RN late entry: per Dasha at [facility], stated Arnoldo is a delegated payer for snf transfer. CM would need to call Arnoldo instead.
[2021-06-01 15:41] VITALS: BP_SYST 120
[2021-06-01] MEDS: EPOETIN ALFA 10,000 UNITS/ML VIAL SUBCUT SCH (16:54)
--- NOTE | 2021-06-01 17:26 | NUR ---
CONSULTATION FOLLW-UP REASON FOR CONSULTATION:SEPTISEMIA WAS CONSULT CALED?Y PERSON WHO WAS NOTIFIED:CHECO CONSULTING PHYSICIAN:BRYAN ARRIAZA WIRING TECHNICIAN SPECIALTY:INFECTIOUS DISEASE WIRING TECHNICIAN PHONE NUMBER:[phone] REQUESTING PHYSICIAN:[facility]
--- NOTE | 2021-06-01 18:40 | NUR ---
CLOSING NOTES: PATIENT IS AWAKE LAYING DOWN IN BED. TOLERATED OXYGEN ON ROOM AIR WITH NO DISTRESS NOTED. IV LINE PATENT AND INTACT NO INFILTRATION NOTED. PATIENT STABLE AT THIS TIME. SAFETY, FALL, AND ASPIRATION PRECAUTIONS REMAINED IN PLACE. BED LOCKED IN LOWEST POSITION AND CALL LIGHT IN REACH. WILL ENDORSE PATIENT CARE TO ONCOMING STEM SIZER NURSE.
--- NOTE | 2021-06-01 19:35 | NUR ---
ROUNDS PATIENT RESTING COMFORTABLY IN BED, NOT IN DISTRESS, VITALS STABLE. DENIES ANY PAIN AT THIS TIME. ASSESSMENT DONE AND DOCUEMNTED. FAMILY AT THE BEDSIDE. NEEDS ATTENDED TO. SAFETY MEASURES IN PLACED. BED ALARM ON. CALL LIGHT PLACED WITHIN REACH.
[2021-06-01 20:00] VITALS: BP_SYST 118
[2021-06-01] MEDS ORDERED: NAFCILLIN SODIUM 2 GM VIAL ONE (20:15)
[2021-06-01] MEDS: NAFCILLIN SODIUM 2 GM in NS 100 ML IV SCH (20:57)
[2021-06-01] MEDS: traZODone HCL 50 MG TABLET (DESYREL) PO SCH (21:07)
--- NOTE | 2021-06-01 21:13 | NUR ---
MEDICATIONS DUE MEDICATIONS GIVEN SCHEDULED, TOLERATED WELL. WILL CONTINUE TO MONITOR.
[2021-06-02] VITALS: BP_SYST 124
[2021-06-02] MEDS: HYDROcodone/ACETAMIN 7.5-325 MG TAB PO PRN ×4 (03:11→21:16)
[2021-06-02] MEDS ORDERED: NAFCILLIN SODIUM 2 GM VIAL ONE (03:44)
[2021-06-02] MEDS: NAFCILLIN SODIUM 2 GM in NS 100 ML IV SCH ×4 (03:45→17:39)
--- NOTE | 2021-06-02 04:15 | NUR ---
PATIENT RESTING: Patient resting quietly. No acute distress noted. Vital signs within normal range.
[2021-06-02] MEDS: INSULIN REGULAR, HUMAN 100 UNITS/ML, 10 ML VIAL (humuLIN R) SUBCUT PRN ×4 (06:02→21:22)
[2021-06-02] MEDS: INSULIN NPH 100 UNITS/ML 10 ML VIAL SUBCUT SCH (06:36)
[2021-06-02 06:37] LABS: BASOPHILS % (AUTO) 0.4 % (0.0-2.0); EOSINOPHILS # (AUTO) 0.2 K/uL (0.0-0.4); EOSINOPHILS % (AUTO) 2.4 % (0.0-4.0); HEMATOCRIT 26.3 % (36-54); HEMOGLOBIN 8.5 g/dL (14.0-18.0); LYMPHOCYTES % (AUTO) 12.3 % (20.5-51.5); MEAN CORPUSCULAR HEMOGLOBIN 26 pg (27-31); MEAN CORPUSCULAR HGB CONC 32 % (32-36); MEAN CORPUSCULAR VOLUME 79 fL (79.0-98.0); MONOCYTES # (AUTO) 0.6 K/uL (0.0-1.0); MONOCYTES % (AUTO) 6.8 % (1.7-9.3); NEUTROPHILS # (AUTO) 6.4 K/uL (1.8-7.7); NEUTROPHILS % (AUTO) 78.1 % (40.0-70.0); PLATELET COUNT (AUTO) 92 K/uL (130-430); RED BLOOD CELL COUNT(AUTO) 3.32 MIL/uL (4.2-6.2); RED CELL DISTRIBUTION WIDTH 15.7 % (9.0-15.0); WHITE BLOOD COUNT (AUTO) 8.2 K/uL (4.8-10.8)
[2021-06-02 07:11] LABS: ALBUMIN 1.8 g/dL (3.4-4.8); CREATININE 5.2 mg/dL (0.55-1.30); POTASSIUM 4.4 mmol/L (3.5-5.1); TOTAL BILIRUBIN 0.8 mg/dL (0.0-1.0)
[2021-06-02 08:00] VITALS: BP_SYST 94
--- NOTE | 2021-06-02 08:00 | NUR ---
PATIENT IS AWAKE LAYING DOWN IN BED. TOLERATED OXYGEN ON ROOM AIR WITH NO DISTRESS NOTED. IV LINE PATENT AND INTACT NO INFILTRATION NOTED. PATIENT STABLE AT THIS TIME. SAFETY, FALL, AND ASPIRATION PRECAUTIONS ARE IN PLACE. BED LOCKED IN LOWEST POSITION AND CALL LIGHT IN REACH. WILL CONTINUE TO MONITOR.
[2021-06-02] MEDS: NEPHROVITE, (FOLIC ACID/VITAMIN B COMP W-C 1 TAB) PO SCH (08:29)
[2021-06-02] MEDS: TAMSULOSIN HCL 0.4 MG CAP PO SCH (08:29)
[2021-06-02] MEDS: CHOLECALCIFEROL (VITAMIN D3) 2,000 UNIT TABLET PO SCH (08:31)
[2021-06-02] MEDS: ATENOLOL 50 MG TABLET (TENORMIN) PO SCH ×2 (08:32→20:41)
--- NOTE | 2021-06-02 10:21 | NUR ---
Nutrition F/U Admitting Diagnosis: Hypoglycemia Medical History Comment: PMH: DM, HTN, ESRD on HD, HLD, polio, and BPH per physician notes Pt was also found w/ severe protein malnutrition per physician notes SARS-CoV-2 Ag (Rapid) Negative 05/29 Subjective Information: Pt seen in bed, reports that his appetite remains fair. Pt asked RD for food choices, and RD stated that dietetic aide will come to see pt for menu selection. Pt also admits to no BM since admission. Pt reports he continues to drink Nepro. RD encouraged pt to increase PO intake. Per EMR review, pt is for dialysis today, Hypoglycemia now resolved. Pt c/o generalized body ache. Per MD notes, pt will be scheduled for MRI of the lumbar spine. Pt was seen by speech therapist on 05/30 and noted that pt w/ moderate oral dysphagia and rec mechanical soft finely chopped. Pt declined EGD. Sher scale: 17, no skin issues documented. Per RN notes, non-pitting bilateral generalized edema. Current diet order remains appropriate. Current Diet Order/Nutrition Support: Mechanical soft finely chopped CCHO diet, Nepro BID x 3 days Pertinent Medications: nephrovite, VIT D, Insulin, Heparin, Desyrel Pertinent Labs: 06/02: NA 134L, K 4.4WNL, BG 324H, POC BG 328H, BUN 65H, Cre 5.2H Height: 5 feet 7.00 inches Weight: 161 pounds/ 73.928903 kilograms. New weight: 06/02 163#/ 74kg --2# wt gain possibly d/t fluid retention Body Mass Index: 25.21 kg/m2 [place]/Adjusted Body Weight: IBW: 148#/67 kg Estimated Energy Expenditure (kcals/day) 6812-4468 kcal/day (30-35 kcal/kg CBW d/t ESRD on HD) Estimated Protein Required (g/day) 88-110 gm/day (1.2-1.5 gm/kg CBW d/t ESRD on HD) Estimated Fluid Required (l/day) Per physician d/t ESRD Problem/Etiology/Signs/Symptoms Suboptimal nutritional intakes related to lack of appetite as evidenced by poor PO intake records. (*ongoing) Altered nutrition-related labs related to endocrine and renal dysfunction as evidenced by abnormal BG, K, BUN, and CRE lab values. (*ongoing) Expected Outcomes/Goals - Monitor appetite and PO intakes w/ goal of pt meeting at least 75% of estimated nutritional needs, labs trending WNL, normal GI function, and skin integrity/wt maintenance Dietitian Recommendations * Recommend continue CCHO, mechanical soft, finely chopped diet w/ Nepro BID (ONS provides 850 kcal/day, 38 gm protein/day) * Menu selection and maximum encouragement during meals. Follow Up High Risk: F/U in 2-3days
--- NOTE | 2021-06-02 10:36 | NUR ---
Dietitian Recommendations * Recommend continue CCHO, mechanical soft, finely chopped diet w/ Nepro BID (ONS provides 850 kcal/day, 38 gm protein/day) * Menu selection and maximum encouragement during meals. Please see Nutrition F/U note for details. JULIANA, RD
--- NOTE | 2021-06-02 10:50 | NUR ---
GI DOCTOR PAGED PAGED GILBERTO VAZQUEZ AT [phone] SPOKE WITH
[2021-06-02 12:22] VITALS: BP_SYST 94
--- NOTE | 2021-06-02 12:25 | NUR ---
PAGED PAGED MADELNI SALEEM AT [phone] SPOKE WITH DAVID.
--- NOTE | 2021-06-02 14:39 | NUR ---
CM note: Per Evita/[facility] , the pt is accepted but pending auth from insurance. Once the insurance approved, she will call back with bed assignment.--. Patient made aware and LVM to notified son,Dawson today. Per dr. Silveira, planning to dc pt tomorrow .
[2021-06-02 17:12] VITALS: BP_SYST 118
--- NOTE | 2021-06-02 18:45 | NUR ---
PATIENT IS AWAKE SITTING AT BEDSIDE VISITING WITH FAMILY. TOLERATED OXYGEN ON 2LPM NC WITH NO DISTRESS NOTED. IV LINE PATENT AND INTACT NO INFILTRATION NOTED. PATIENT STABLE AT THIS TIME. SAFETY, FALL, AND ASPIRATION PRECAUTIONS REMAINED IN PLACE. BED LOCKED IN LOWEST POSITION AND CALL LIGHT IN REACH. WILL ENDORSE PATIENT CARE TO ONCOMING NURSE.
--- NOTE | 2021-06-02 19:35 | NUR ---
RECEIVED REPORT FROM DAY RN. PATIENT SITTING IN BED WITH FAMILY AT BEDSIDE. RESPIRATIONS EVEN AND UNLABORED ON 2L NC. NO SIGNS OF DISTRESS NOTED. RIGHT CHEST PERMACATH NOTED. LFA IV 22G SALINE LOCKED. NO SIGNS OF INFILTRATION NOTED. PT INFORMED OF PLAN OF CARE FOR THE NIGHT. PATIENT VERBALIZED UNDERSTANDING. BED IN LOW AND LOCKED POSITION. PT EDUCATED ON USING URINAL AND USING CALL LIGHT IF ASSISTANCE NEEDED. PT VERBALIZED UNDERSTANDING. CALL LIGHT WITHIN REACH. SAFETY/FALL PRECAUTIONS IN PLACE. WILL CONTINUE TO MONITOR.
[2021-06-02 20:00] VITALS: BP_SYST 102
[2021-06-02] MEDS: traZODone HCL 50 MG TABLET (DESYREL) PO SCH (20:35)
--- NOTE | 2021-06-02 21:16 | NUR ---
PAIN MEDICATION ADMINISTERED PT C/O PAIN TO LOWER BACK. PRN PAIN MED ADMINISTERED. PT TOLERATED WELL.
[2021-06-03] VITALS: BP_SYST 98
[2021-06-03] MEDS: NAFCILLIN SODIUM 2 GM in NS 100 ML IV SCH ×4 (00:05→18:02)
[2021-06-03 02:26] VITALS: BP_SYST 124
[2021-06-03] MEDS: HYDROcodone/ACETAMIN 7.5-325 MG TAB PO PRN ×4 (02:26→20:17)
--- NOTE | 2021-06-03 02:26 | NUR ---
PAIN MEDICATION ADMINISTERED PT C/O LOWER BACK PAIN. THROBBING. PT REPOSITIONED, CLEANED AND PRN PAIN MEDICATION GIVEN. VS WNL.
--- NOTE | 2021-06-03 03:03 | NUR ---
PT REQUESTS TO SIT IN CHAIR. EDUCATED PT ON FALL AND SAFETY RISK WHEN TRYING TO STAND/WALK FROM BED TO CHAIR AFTER PAIN MEDICATION GIVEN. PT ENCOURAGED TO STAY IN BED AND ABLE TO REPOSITION PT TO COMFORT LEVEL. PT VERBALIZED UNDERSTANDING.
--- NOTE | 2021-06-03 06:02 | NUR ---
XAVI DAWKINS I SPOKE WITH BECKI MELENDREZ
--- NOTE | 2021-06-03 06:22 | NUR ---
SPOKE WITH DR. DAWKINS PER MD, HOLD SCHEDULED MORNING HUMULIN NPH. CONTINUE WITH 2U REGULAR INSULIN PER SLIDING SCALE OF PT BS 220. READ BACK ORDER. VERIFIED WITH MD. INFORMED PT OF INSULIN MEDICATION CHANGE. PT VERBALIZED UNDERSTANDING.
--- NOTE | 2021-06-03 06:30 | NUR ---
SPOKE TO OUTPATIENT RN. PER RN. PT WILL BE PICKED UP AT 0800 FOR GI PROCEDURE.
[2021-06-03] MEDS: INSULIN NPH 100 UNITS/ML 10 ML VIAL SUBCUT SCH (06:41)
[2021-06-03] MEDS: INSULIN REGULAR, HUMAN 100 UNITS/ML, 10 ML VIAL (humuLIN R) SUBCUT PRN ×3 (06:47→20:24)
[2021-06-03 07:00] LABS: BASOPHILS % (AUTO) 0.5 % (0.0-2.0); EOSINOPHILS # (AUTO) 0.2 K/uL (0.0-0.4); EOSINOPHILS % (AUTO) 2.7 % (0.0-4.0); HEMATOCRIT 27.7 % (36-54); HEMOGLOBIN 8.8 g/dL (14.0-18.0); LYMPHOCYTES % (AUTO) 11.9 % (20.5-51.5); MEAN CORPUSCULAR HEMOGLOBIN 26 pg (27-31); MEAN CORPUSCULAR HGB CONC 32 % (32-36); MEAN CORPUSCULAR VOLUME 80 fL (79.0-98.0); MONOCYTES # (AUTO) 0.7 K/uL (0.0-1.0); MONOCYTES % (AUTO) 8.1 % (1.7-9.3); NEUTROPHILS # (AUTO) 6.7 K/uL (1.8-7.7); NEUTROPHILS % (AUTO) 76.8 % (40.0-70.0); PLATELET COUNT (AUTO) 121 K/uL (130-430); RED BLOOD CELL COUNT(AUTO) 3.47 MIL/uL (4.2-6.2); RED CELL DISTRIBUTION WIDTH 15.9 % (9.0-15.0); WHITE BLOOD COUNT (AUTO) 8.7 K/uL (4.8-10.8)
[2021-06-03 07:27] LABS: CREATININE 3.92 mg/dL (0.55-1.30); POTASSIUM 4.4 mmol/L (3.5-5.1)
[2021-06-03 08:02] VITALS: BP_SYST 118
--- NOTE | 2021-06-03 08:15 | NUR ---
ASSUMPTION OF CARE: RECEIVED PT A/A/OX4, DX: ELECTROLYTE IMBALANCE, R/T HYPOGLYCEMIA, VSS, AFEBRILE, BREATH SOUNDS ARE CLEAR, BREATHING UNLABORED, SATURATING 94-95% WHILE ON 2L O2 VIA N/C, NO S/S OF DISTRESS, PULSES PALPABLE, IV SITE INTACT, PATENT, NO REDNESS OR SWELLING, ORIENTED TO UNIT, CALL LIGHT PLACED WITHIN REACH, WILL CONT' TO MONITOR AND ASSESS.
[2021-06-03] MEDS ORDERED: fentaNYL CITRATE/PF 100 MCG/2 ML AMP ONE (08:19)
[2021-06-03] MEDS ORDERED: SIMETHICONE 40 MG/0.6 ML ML ONE (08:19)
[2021-06-03] MEDS ORDERED: MIDAZOLAM HCL 5 MG/5 ML VIAL ONE (08:20)
[2021-06-03] MEDS ORDERED: BENZOCAINE 20% 0.5mL UD SPRAY MM ONE (08:20)
--- NOTE | 2021-06-03 09:00 | NUR ---
GI LAB: PT TRANSPORTED TO GI LAB FOR SCHEDULE EGD IN STABLE CONDITION, VIA BED, TOLERATING WELL, ACCOMPANIED BY GI STAFF, WILL CONT' WITH POC.
[2021-06-03 09:25] LABS: VANCOMYCIN,RANDOM 11.4 ug/mL
--- NOTE | 2021-06-03 10:00 | NUR ---
NURSES NOTES: PT RETURNED TO ROOM IN STABLE CONDITION, VSS, NO DISTRESS NOTED, C/O PAIN 7/10 VIA NUMERIC SCALE. WILL MEDICATE PRESCRIBED BY Angel, CALL LIGHT WITHIN REACH, WILL CONT' TO MONITOR AND ASSESS.
[2021-06-03] MEDS: TAMSULOSIN HCL 0.4 MG CAP PO SCH (10:04)
[2021-06-03] MEDS: CHOLECALCIFEROL (VITAMIN D3) 2,000 UNIT TABLET PO SCH (10:04)
[2021-06-03] MEDS: NEPHROVITE, (FOLIC ACID/VITAMIN B COMP W-C 1 TAB) PO SCH (10:04)
--- NOTE | 2021-06-03 10:05 | NUR ---
RIG HAND: MORNING MEDS GIVEN, PER ORDERED BY Angel, TOLERATED WELL, WILL CONT' TO MONITOR AND ASSESS.
[2021-06-03] MEDS: ATENOLOL 50 MG TABLET (TENORMIN) PO SCH ×2 (10:09→20:17)
[2021-06-03 11:27] VITALS: BP_SYST 119
--- NOTE | 2021-06-03 12:00 | NUR ---
GLUCOSE MONITORING: BLOOD SUGAR [id number], NO COVERAGE REQUIRED AT THIS TIME, CONDITION IS STABLE, NEEDS MET, ASSISTED TO CHAIR, WILL REMAIN IN CHAIR DURING LUNCH, CALL LIGHT WITHIN REACH, WILL CONT' TO MONITOR AND ASSESS.
[2021-06-03] MEDS ORDERED: VANCOMYCIN HCL 500 MG in NS 100 ML IV ONE (13:00)
--- NOTE | 2021-06-03 15:21 | NUR ---
CM note: booked with Sejal at [employer] [facility] service/[facility]/[place], booking ref # [id number], tel # [phone]. She will give the booking to dispatcher who will call Jany/nursing unit with the pick time. -- Jany made aware, dc package placed in nursing unit. Pt's son made aware and he agreed with the transfer to [facility] today. Addendum: 06/03/21 at 1636 by Genesis Palma RN >> Cancelled the transportation with Ivelisse at [employer] transportation service. The discharge is pending clearance from ID and I received a call from Evita that she has not received the authorization from [facility], so that she can not take the transfer yet.
--- NOTE | 2021-06-03 15:41 | NUR ---
PAGED PAGED MADELIN SALEEM AT [phone] SPOKE WITH DAVID.
[2021-06-03 15:42] VITALS: BP_SYST 108
--- NOTE | 2021-06-03 17:30 | NUR ---
GLUCOSE MONITORING: BLOOD SUGAR BIJKY=[id number], 4 UNITS REGULAR INSULIN GIVEN SQ AT THIS TIME, TOLERATED WELL, CONDITION IS STABLE, FAMILY AT BEDSIDE, WILL CONT' TO MONITOR.
[2021-06-03] MEDS: EPOETIN ALFA 10,000 UNITS/ML VIAL SUBCUT SCH (18:05)
--- NOTE | 2021-06-03 19:30 | NUR ---
OPENING NOTES RECEIVED REPORT FROM DAY SHIFT RN. PT RESTING IN BED, ALERT & ORIENTED X4. BREATHING EVEN AND UNLABORED TO ROOM AIR. NO S/S OF ACUTE DISTRESS NOTED. IV ON LEFT UPPER ARM 22G INTACT, NO SIGNS OF INFILTRATION NOTED. RIGHT CHEST PERMACATH CLEAN, DRY, AND INTACT. BED ALARM ON, LOCKED IN LOWEST POSITION. CLOSE TO NURSING STATION. SIDE RAILS UP X3. SAFETY AND FALL PRECAUTIONS ARE IN PLACE. WILL MONITOR.
[2021-06-03 20:00] VITALS: BP_SYST 121
[2021-06-03] MEDS: traZODone HCL 50 MG TABLET (DESYREL) PO SCH (20:17)
[2021-06-04] MEDS: NAFCILLIN SODIUM 2 GM in NS 100 ML IV SCH ×6 (00:23→18:22)
[2021-06-04] MEDS: HYDROcodone/ACETAMIN 7.5-325 MG TAB PO PRN ×5 (00:23→20:54)
[2021-06-04 00:28] VITALS: BP_SYST 125
[2021-06-04] MEDS: INSULIN NPH 100 UNITS/ML 10 ML VIAL SUBCUT SCH (06:17)
[2021-06-04] MEDS: INSULIN REGULAR, HUMAN 100 UNITS/ML, 10 ML VIAL (humuLIN R) SUBCUT PRN ×3 (06:18→20:58)
--- NOTE | 2021-06-04 06:40 | NUR ---
PT REFUSED ANTIBIOTICS AT THIS TIME. PT STATED "I WANT TO TALK TO DOCTOR FIRST AND WILL THINK ABOUT LATER." EDUCATED PT REGARDING BENEFITS AND POTENTIAL SIDE EFFECTS OF ANTIBIOTICS, PT STILL REFUSED AND VERY UPSET.
[2021-06-04 07:27] LABS: CREATININE 4.51 mg/dL (0.55-1.30); POTASSIUM 4.2 mmol/L (3.5-5.1); VANCOMYCIN,RANDOM 13.3 ug/mL
[2021-06-04 07:31] LABS: CALCIUM 6.6 mg/dL (8.4-11.0)
[2021-06-04 08:00] VITALS: BP_SYST 112
--- NOTE | 2021-06-04 08:00 | NUR ---
initial notes rec patient in bed and with ivl out. resp easy and unlabored. no sob noted. call light within reached .bed to the lowest position and side rails up and locked. perma cath intact on the r upper chest. seen by dr tavarez at bedside and with orders.
[2021-06-04] MEDS: ATENOLOL 50 MG TABLET (TENORMIN) PO SCH ×2 (09:00→20:54)
--- NOTE | 2021-06-04 09:24 | NUR ---
CONSULTATION: REASON FOR CONSULT: REMOVE HD CATHETER CONSULTING PHYSICIAN: ZAHRA MA ORDERED BY: CESAR SPOKE WITH LATANYA [phone]
[2021-06-04] MEDS: CHOLECALCIFEROL (VITAMIN D3) 2,000 UNIT TABLET PO SCH (09:54)
[2021-06-04] MEDS: TAMSULOSIN HCL 0.4 MG CAP PO SCH (09:54)
[2021-06-04] MEDS: NEPHROVITE, (FOLIC ACID/VITAMIN B COMP W-C 1 TAB) PO SCH (09:54)
[2021-06-04 11:38] VITALS: BP_SYST 104
[2021-06-04] MEDS: HEPARIN SODIUM, PORCINE 10,000 UNITS/ 10 ML VIAL MC PRN (12:33)
--- NOTE | 2021-06-04 13:02 | NUR ---
rounds dialysis completed at bedside.
--- NOTE | 2021-06-04 13:03 | NUR ---
Insurance denied authorization for SNF level of care according to [facility] SNF community service officer coordinator.
--- NOTE | 2021-06-04 13:51 | NUR ---
Patient feels too weak to participate in treatment at this time. He received dialysis treatment earlier. Plan: attempt treatment tomorrow.
[2021-06-04] MEDS ORDERED: VANCOMYCIN HCL 750 MG/NS 250 ML IV ONE (15:00)
[2021-06-04 15:58] VITALS: BP_SYST 144
--- NOTE | 2021-06-04 16:00 | NUR ---
rounds seen by dr Myles and talk to patient's son. still waiting for dr morris to see patient.
--- NOTE | 2021-06-04 19:30 | NUR ---
OPENING NOTES RECEIVED REPORT FROM DAY SHIFT RN. PT SLEEPING, CHEST RISE AND FALL SYMMETRICAL. NO SIGNS OF RESPIRATORY DISTRESS NOTED. O2 SAT 95%. IV ON LEFT WRIST 20G INTACT, SL. NO SIGNS OF INFILTRATION NOTED. CALL LIGHT WITHIN REACH. SIDE RAILS UP X3. BED ALARM ON, LOCKED IN LOWEST POSITION. CLOSE TO NURSING STATION. SAFETY AND FALL PRECAUTIONS ARE IN PLACE. WILL CONTINUE TO MONITOR.
[2021-06-04 20:00] VITALS: BP_SYST 138
[2021-06-04] MEDS: traZODone HCL 50 MG TABLET (DESYREL) PO SCH (20:53)
--- NOTE | 2021-06-04 21:48 | NUR ---
TRANSFER OF CARE GIVEN REPORT TO EMELYN RAPHAEL.
[2021-06-05 00:50] VITALS: BP_SYST 140
[2021-06-05] MEDS: NAFCILLIN SODIUM 2 GM in NS 100 ML IV SCH ×5 (00:58→23:54)
[2021-06-05] MEDS: HYDROcodone/ACETAMIN 7.5-325 MG TAB PO PRN ×5 (00:59→20:36)
[2021-06-05] MEDS: INSULIN NPH 100 UNITS/ML 10 ML VIAL SUBCUT SCH (06:41)
[2021-06-05] MEDS: INSULIN REGULAR, HUMAN 100 UNITS/ML, 10 ML VIAL (humuLIN R) SUBCUT PRN ×4 (06:42→21:21)
[2021-06-05 06:55] LABS: BASOPHILS # (AUTO) 0.1 K/uL (0.0-0.2); BASOPHILS % (AUTO) 0.7 % (0.0-2.0); EOSINOPHILS # (AUTO) 0.1 K/uL (0.0-0.4); EOSINOPHILS % (AUTO) 1.7 % (0.0-4.0); HEMATOCRIT 29.6 % (36-54); HEMOGLOBIN 9.4 g/dL (14.0-18.0); LYMPHOCYTES # (AUTO) 1.1 K/uL (1.0-5.5); LYMPHOCYTES % (AUTO) 14.4 % (20.5-51.5); MEAN CORPUSCULAR HEMOGLOBIN 25 pg (27-31); MEAN CORPUSCULAR HGB CONC 32 % (32-36); MEAN CORPUSCULAR VOLUME 80 fL (79.0-98.0); MONOCYTES # (AUTO) 0.6 K/uL (0.0-1.0); MONOCYTES % (AUTO) 7.3 % (1.7-9.3); NEUTROPHILS # (AUTO) 5.8 K/uL (1.8-7.7); NEUTROPHILS % (AUTO) 75.9 % (40.0-70.0); PLATELET COUNT (AUTO) 212 K/uL (130-430); RED BLOOD CELL COUNT(AUTO) 3.73 MIL/uL (4.2-6.2); RED CELL DISTRIBUTION WIDTH 16.2 % (9.0-15.0); WHITE BLOOD COUNT (AUTO) 7.6 K/uL (4.8-10.8)
--- NOTE | 2021-06-05 07:04 | NUR ---
CLOSING NOTES PATIENT RESTING, NO SIGNS OF DISTRESS NOTED. CALL LIGHT WITHIN REACH, PATIENT USED CALL LIGHT THROUGHOUT SHIFT. FALL, ASPIRATION, RESPIRATORY, ISOLATION AND SAFETY PRECAUTIONS IN PLACE THROUGHOUT SHIFT. ALL NEEDS MET THROUGHOUT SHIFT. WILL ENDORSE CARE TO ONCOMING SHIFT.
[2021-06-05 07:24] LABS: CREATININE 3.56 mg/dL (0.55-1.30); POTASSIUM 4.4 mmol/L (3.5-5.1)
--- NOTE | 2021-06-05 07:24 | NUR ---
REMINDED THE CONSULT CALLED YESTERDAY TO DR Jason MA. SPOKE TO MARK (EXCHANGE) TO REMIND THE MD OF THE CONSULT
[2021-06-05 08:00] VITALS: BP_SYST 105
[2021-06-05] MEDS: TAMSULOSIN HCL 0.4 MG CAP PO SCH (08:31)
[2021-06-05] MEDS: CHOLECALCIFEROL (VITAMIN D3) 2,000 UNIT TABLET PO SCH (08:31)
[2021-06-05] MEDS: NEPHROVITE, (FOLIC ACID/VITAMIN B COMP W-C 1 TAB) PO SCH (08:31)
[2021-06-05] MEDS: ATENOLOL 50 MG TABLET (TENORMIN) PO SCH ×3 (08:31→20:44)
[2021-06-05 11:24] VITALS: BP_SYST 131
[2021-06-05] MEDS ORDERED: LIDOCAINE 1%, 20 ML MDV 20 ML ONE (11:26)
[2021-06-05] MEDS ORDERED: LIDOCAINE 1% 10 MG/ML, 20 ML MDV INJ ONE (11:30)
--- NOTE | 2021-06-05 12:03 | NUR ---
rounds dr carlee morris came and pulled out perma cath at bedside. swab the post site of the perma cath and was sent to lab for c/s. no bleeding noted on the site. dressing intact. will monitor for any bleeding
[2021-06-05 15:25] VITALS: BP_SYST 111
--- NOTE | 2021-06-05 16:00 | NUR ---
Nutrition F/U Admitting Diagnosis: Hypoglycemia Medical History Comment: PMH: DM, HTN, ESRD on HD, HLD, polio, and BPH per physician notes Pt was also found w/ severe protein malnutrition per physician notes SARS-CoV-2 Ag (Rapid) Negative 05/29 Subjective Information: RD visited pt at bedside earlier today. Pt's family was present at bedside as well. Pt reported good appetite, no N/V/C/D. Pt stated that he is still having difficulty swallowing and prefers finely chopped foods. Pt was recently placed on solely mechanical soft diet. Pt also requested prune juice and menu selections for dinner -- RD notified FNS staff. RN reported that pt had permacath removed by thoracic surgeon earlier today, and it will likely be replacement next week. RN also stated that pt usually receives dialysis 3x/week (TuThSat). Per EMR review, PO intake average of 54% x6 meals; last BM x3 06/05; Sher scale: 18, no PIs noted. Pt's appetite is improving since admission. RD provided F/U nutrition education per request. Additional nutrition education handouts provided from the AND Nutrition Care Manual and NIH for diabetes and renal nutrition management. Current Diet Order/Nutrition Support: Mechanical soft x2 days Pertinent Medications: nephrovite, VIT D, Insulin, Heparin, Desyrel Pertinent Labs: Na 138 WNL, BG 205 H, POC BG 206 H, BUN 33 H, CRE 3.56 H Height: 5'7"/67" Weight: 161#/73 kilograms. New weight: 06/02: 163#/74kg (06/02); 166#/75 kg (06/04) --3# wt gain possibly d/t fluid retention Body Mass Index: 25.21 kg/m2. New BMI: 26.1 kg/m2 (06/04) [place]/Adjusted Body Weight: IBW: 148#/67 kg Estimated Energy Expenditure (kcals/day) 4571-5798 kcal/day (30-35 kcal/kg CBW d/t ESRD on HD) Estimated Protein Required (g/day) 88-110 gm/day (1.2-1.5 gm/kg CBW d/t ESRD on HD) Estimated Fluid Required (l/day) Per physician d/t ESRD Problem/Etiology/Signs/Symptoms Suboptimal nutritional intakes related to lack of appetite as evidenced by poor PO intake records. (*improving) Altered nutrition-related labs related to endocrine and renal dysfunction as evidenced by abnormal BG, K, BUN, and CRE lab values. (*ongoing) Expected Outcomes/Goals - Monitor appetite and PO intakes w/ goal of pt meeting at least 75% of estimated nutritional needs, labs trending WNL, normal GI function, and skin integrity/wt maintenance Dietitian Recommendations * Re-implement CCHO, mechanical soft, finely chopped diet w/ Nepro BID (ONS provides 850 kcal/day, 38 gm protein/day) Follow Up Moderate Risk: F/U in 3-5 days
--- NOTE | 2021-06-05 16:09 | NUR ---
Dietitian Recommendations * Re-implement CCHO, mechanical soft, finely chopped diet w/ Nepro BID (ONS provides 850 kcal/day, 38 gm protein/day) LP, RD Please refer to Nutrition F/U for details.
[2021-06-05] MEDS: EPOETIN ALFA 10,000 UNITS/ML VIAL SUBCUT SCH (16:53)
--- NOTE | 2021-06-05 19:30 | NUR ---
Opening notes Received report. Patient is resting in bed, no signs of distress noted. Breathing even and unlabored on room air. IV patent and intact, no signs of infiltration noted. No needs at this time. call light with the patient. Safety precautions in place. Family at bedside.
[2021-06-05 20:50] VITALS: BP_SYST 132
[2021-06-05] MEDS: traZODone HCL 50 MG TABLET (DESYREL) PO SCH (21:57)
--- NOTE | 2021-06-06 00:30 | NUR ---
RN rounds Assisted patient to stand and use urinal. Minimum assistance required. Patient voided. Patient assisted back into bed. No other needs. Call light with the patient. Safety precautions in place.
[2021-06-06] MEDS: HYDROcodone/ACETAMIN 7.5-325 MG TAB PO PRN ×5 (00:45→22:27)
[2021-06-06 00:58] VITALS: BP_SYST 142
--- NOTE | 2021-06-06 05:00 | NUR ---
IV insertion IV removed by patient. Catheter tip intact and discarded. New IV inserted on LFA 22 gauge with good blood return and flushes well.
[2021-06-06] MEDS: NAFCILLIN SODIUM 2 GM in NS 100 ML IV SCH ×3 (06:05→17:45)
[2021-06-06] MEDS: INSULIN NPH 100 UNITS/ML 10 ML VIAL SUBCUT SCH (06:12)
--- NOTE | 2021-06-06 06:58 | NUR ---
Closing notes Patient is sitting in bedside chair. No signs of distress noted. Breathing even and unlabored on room air. IV patent and intact, no signs of infiltration noted. All needs met throughout the shift. call light with the patient. Safety precautions in place. Will endorse care to day shift RN.
[2021-06-06 08:00] VITALS: BP_SYST 121
--- NOTE | 2021-06-06 08:00 | NUR ---
AM NOTES PT STABLE NOT IN ACUTE DISTRESS. NO S/S OF DISTRESS .DENIES ANY CHEST PAIN OR CHEST COMFORT. DENIES SOB. RES EVEN AND UNLABORED.IV PATENT NO S/S OF INFILTRATION NOTED. SAFETY/ FALL PRECAUTIONS IN PLACE.BED LOCKED AND IN LOW POSITION.CALL LIGHT WITHIN REACH, POC DISCUSSED WITH PT. VERBALIZED UNDERSTANDING. WILL CONTINUE TO MONITOR
[2021-06-06] MEDS: NEPHROVITE, (FOLIC ACID/VITAMIN B COMP W-C 1 TAB) PO SCH (09:28)
[2021-06-06] MEDS: TAMSULOSIN HCL 0.4 MG CAP PO SCH (09:28)
[2021-06-06] MEDS: CHOLECALCIFEROL (VITAMIN D3) 2,000 UNIT TABLET PO SCH (09:28)
[2021-06-06] MEDS: ATENOLOL 50 MG TABLET (TENORMIN) PO SCH ×2 (09:30→20:57)
[2021-06-06 11:49] VITALS: BP_SYST 141
--- NOTE | 2021-06-06 13:30 | NUR ---
ROUNDS PT STABLE NOT IN ACUTE DISTRESS. NEED ATTENDED. FAMILY AT BED SIDE.
[2021-06-06] MEDS ORDERED: VANCOMYCIN HCL 750 MG in NS 250 ML IV ONE (15:00)
[2021-06-06 15:24] VITALS: BP_SYST 135
[2021-06-06] MEDS: INSULIN REGULAR, HUMAN 100 UNITS/ML, 10 ML VIAL (humuLIN R) SUBCUT PRN ×2 (17:54→20:56)
--- NOTE | 2021-06-06 19:00 | NUR ---
CLOSING NOTES PT STABLE NOT IN ACUTE DISTRESS. NO S/S OF DISTRESS .DENIES ANY CHEST PAIN OR CHEST COMFORT. DENIES SOB. RES EVEN AND UNLABORED.IV PATENT NO S/S OF INFILTRATION NOTED. SAFETY/ FALL PRECAUTIONS IN PLACE.BED LOCKED AND IN LOW POSITION.CALL LIGHT WITHIN REACH, WILL ENDORSE TO NIGHT NURSE
[2021-06-06 20:00] VITALS: BP_SYST 148
[2021-06-06] MEDS: traZODone HCL 50 MG TABLET (DESYREL) PO SCH (20:58)
--- NOTE | 2021-06-06 21:31 | NUR ---
OPENING NOTES: Received report from dayshift nurse. Patient is resting in bed, alert and oriented and on room air. He has unlabored breathing and does not have any s/s of distress or discomfort. Family is at bedside. Ensured all safety precautions. Bed is locked and in the lowest position with alarm client retention specialist light within reach.
[2021-06-07] VITALS: BP_SYST 138
[2021-06-07] MEDS: NAFCILLIN SODIUM 2 GM in NS 100 ML IV SCH ×4 (00:58→17:30)
[2021-06-07] MEDS: HYDROcodone/ACETAMIN 7.5-325 MG TAB PO PRN ×4 (06:15→21:11)
[2021-06-07] MEDS: INSULIN NPH 100 UNITS/ML 10 ML VIAL SUBCUT SCH (06:21)
[2021-06-07 06:55] LABS: BASOPHILS # (AUTO) 0.1 K/uL (0.0-0.2); BASOPHILS % (AUTO) 0.9 % (0.0-2.0); EOSINOPHILS # (AUTO) 0.2 K/uL (0.0-0.4); EOSINOPHILS % (AUTO) 1.7 % (0.0-4.0); HEMATOCRIT 28.7 % (36-54); HEMOGLOBIN 9.2 g/dL (14.0-18.0); LYMPHOCYTES # (AUTO) 1.7 K/uL (1.0-5.5); LYMPHOCYTES % (AUTO) 18.3 % (20.5-51.5); MEAN CORPUSCULAR HEMOGLOBIN 26 pg (27-31); MEAN CORPUSCULAR HGB CONC 32 % (32-36); MEAN CORPUSCULAR VOLUME 79 fL (79.0-98.0); MONOCYTES # (AUTO) 0.8 K/uL (0.0-1.0); MONOCYTES % (AUTO) 8.9 % (1.7-9.3); NEUTROPHILS # (AUTO) 6.5 K/uL (1.8-7.7); NEUTROPHILS % (AUTO) 70.2 % (40.0-70.0); PLATELET COUNT (AUTO) 292 K/uL (130-430); RED BLOOD CELL COUNT(AUTO) 3.61 MIL/uL (4.2-6.2); WHITE BLOOD COUNT (AUTO) 9.3 K/uL (4.8-10.8)
[2021-06-07 06:59] LABS: CREATININE 4.46 mg/dL (0.55-1.30); POTASSIUM 4.4 mmol/L (3.5-5.1)
--- NOTE | 2021-06-07 07:31 | NUR ---
CLOSING NOTES: Patient is resting in bed, alert and oriented and on room air. He has unlabored breathing and does not have any s/s of distress or discomfort. Ensured all safety precautions. Bed is locked and in the lowest position with alarm calibration checker light within reach. All needs were met throughout shift. I have endorsed care to dayshift nurse.
[2021-06-07 07:51] LABS: CALCIUM 6.8 mg/dL (8.4-11.0)
--- NOTE | 2021-06-07 08:00 | NUR ---
PT IS AAOX4, RESTING IN BED, NO S/S OF ACUTE DISTRESS NOTED. BREATHING IS EVEN AND UNLABORED TO ROOM AIR. NO S/S OF INFILTRATION NOTED AT IV SITE. SAFETY AND FALL PRECAUTIONS ARE IN PLACE. WILL CONTINUE TO MONITOR.
[2021-06-07] MEDS: CHOLECALCIFEROL (VITAMIN D3) 2,000 UNIT TABLET PO SCH (09:29)
[2021-06-07] MEDS: TAMSULOSIN HCL 0.4 MG CAP PO SCH (09:29)
[2021-06-07] MEDS: ATENOLOL 50 MG TABLET (TENORMIN) PO SCH ×2 (09:29→21:09)
[2021-06-07] MEDS: NEPHROVITE, (FOLIC ACID/VITAMIN B COMP W-C 1 TAB) PO SCH (09:29)
--- NOTE | 2021-06-07 11:30 | NUR ---
BS 150. NO COVERAGE IS NEEDED.
[2021-06-07 11:31] VITALS: BP_SYST 126
--- NOTE | 2021-06-07 14:00 | NUR ---
AT BEDSIDE. PATIENT'S POC IS DISCUSSED.
[2021-06-07] MEDS ORDERED: CALCIUM GLUCONATE 2 GM in NS 100 ML IV ONE (16:00)
[2021-06-07 16:03] VITALS: BP_SYST 135
--- NOTE | 2021-06-07 16:13 | NUR ---
PATIENT IS RESTING AT THIS TIME. NO SIGNS OF DISTRESS NOTED.
[2021-06-07] MEDS: INSULIN REGULAR, HUMAN 100 UNITS/ML, 10 ML VIAL (humuLIN R) SUBCUT PRN ×2 (17:35→21:13)
--- NOTE | 2021-06-07 18:00 | NUR ---
BS 213. 2 UNITS OF RI IS GIVEN PER SLIDING SCALE.
[2021-06-07 19:00] VITALS: BP_SYST 115
--- NOTE | 2021-06-07 19:15 | NUR ---
change of shift.pt.presents quiescent affect;calm,resting.pt.to submit to h/d access placement per :06/08/21. pt.presents h/d history. rt.svc h/d access has been removed.pt.presents iv access intact location;rt.forearm.iv fluids:ns-flush infusing.urinal w/in access of the pt.bed alarm engaged.call light/telephone w/in access of the pt.
[2021-06-07 19:24] LABS: INR 1.5 (0.80-1.20)
[2021-06-07 20:00] VITALS: BP_SYST 115
--- NOTE | 2021-06-07 20:00 | NUR ---
pt.assessed.v/s assessed values w/in normal limits.no c/o pain,nausea.iv access intact.i have apprise the pt.that snacks/beverages are available w/in the shift.no requests posited@this hour.ns-iv flush infusing.i have re-iterated to the pt.that a fluids restriction has been ordered:1-litre/24hrs r/t to a pitcher of water.pt.comprehension satisfactory r/e;fluids volume amount.call light/telephone placed w/in access of the pt.pt.repositioned.urinal placed w/in access of the pt.
--- NOTE | 2021-06-07 20:30 | NUR ---
blood glucose assessed value;299/mg/dl. i have apprised the pt.of the blood glucose value.
--- NOTE | 2021-06-07 21:00 | NUR ---
2100pmedications administered.i have administered insulin regular 4-units.pt.had requested medication pain.i have administered norco;7/325mg po.to assess the efficacy of the pain medication per pain mgx protocol.
[2021-06-07] MEDS: traZODone HCL 50 MG TABLET (DESYREL) PO SCH (21:08)
--- NOTE | 2021-06-07 22:00 | NUR ---
pt.assessed.pt.presents quiescent affect;calm,resting.pt.assessed for cleanliness.pt.repositioned.no c/o pain,nausea.pt.had requested cup of ice;provided.robinson harrison/telephone placed w/in access of the pt.
--- NOTE | 2021-06-08 | NUR ---
pt.assessed.v/s assessed values wnl.no c/o pain,nausea.no requests posited@this hour.pt.assessed for cleanliness.pt.repositioned. iv access intact i have administered oxacillin abx ivpb@this hour.call light/telephone placed w/in access of the pt.
[2021-06-08] MEDS: NAFCILLIN SODIUM 2 GM in NS 100 ML IV SCH (00:10)
[2021-06-08 00:26] VITALS: BP_SYST 122
--- NOTE | 2021-06-08 02:00 | NUR ---
pt.assessed.pt.presents quiescent affect;calm,somnolent.per flacc pain mgx pt.absent facial grimaces/body posturing. pt.assessed for cleanlines.pt.repositioned.call light/telephone placed w/in access of the pt.
--- NOTE | 2021-06-08 03:00 | NUR ---
PT.HAD REQUESTED PAIN MEDICATION.I HAVE ADMINISTERED NORCO:7.5/325MG.TO ASSESS THE EFFICACY OF THE PAIN MEDICATION PER PAIN MGX PROTOCOL.PT.requested to be RepoSiTIONED.CALL lIGHT/TELEPHOnE PlaCEd W/IN ACCeSs OF THe PT.BED ALaRM ENGAgED.urinal w/in access of the pt.
[2021-06-08] MEDS: HYDROcodone/ACETAMIN 7.5-325 MG TAB PO PRN ×3 (03:06→20:22)
--- NOTE | 2021-06-08 04:00 | NUR ---
pt.assessed.pt.stated the norco:7.5/325mg was not effective.if there was ordered any additional pain medication. i apprised the pt.that norco;5/325mg was available.pt.stated no.i apprised the pt.that i will page re;pain medication mgx.pt.assessed for cleanliness.pt.repositioned.. general status stable.respiratory status stable.call light/telephone placed w/in access of the pt.
--- NOTE | 2021-06-08 05:30 | NUR ---
PAGED DR. SUMMERS @ [phone] I SPOKE WITH ANNE MELENDREZ
--- NOTE | 2021-06-08 05:46 | NUR ---
PAGED DR. SUMMERS @ [phone] I SPOKE WITH ANNE MELENDREZ THIS IS THE SECOND CALL
--- NOTE | 2021-06-08 05:58 | NUR ---
DR. SUMMERS CALLED BACK
--- NOTE | 2021-06-08 06:00 | NUR ---
returned the page.post several placed pages.i apprised of the pt's request medication;pain. did not order additional medication;pain.i have apprised the pt.that did not order additional medication;pain. blood glucose assessed. vas;ue;160mg/dl.i have administered humulin:n 6-units.scheduled.dose.i have weighed the pt;2/t hemo-dialysis session.
[2021-06-08 06:25] LABS: BASOPHILS # (AUTO) 0.1 K/uL (0.0-0.2); BASOPHILS % (AUTO) 1.1 % (0.0-2.0); EOSINOPHILS # (AUTO) 0.2 K/uL (0.0-0.4); HEMATOCRIT 27.4 % (36-54); HEMOGLOBIN 8.6 g/dL (14.0-18.0); LYMPHOCYTES % (AUTO) 10.9 % (20.5-51.5); MEAN CORPUSCULAR HEMOGLOBIN 25 pg (27-31); MEAN CORPUSCULAR HGB CONC 32 % (32-36); MEAN CORPUSCULAR VOLUME 80 fL (79.0-98.0); MONOCYTES % (AUTO) 10.5 % (1.7-9.3); NEUTROPHILS # (AUTO) 7.1 K/uL (1.8-7.7); NEUTROPHILS % (AUTO) 75.5 % (40.0-70.0); PLATELET COUNT (AUTO) 321 K/uL (130-430); RED BLOOD CELL COUNT(AUTO) 3.44 MIL/uL (4.2-6.2); RED CELL DISTRIBUTION WIDTH 16.5 % (9.0-15.0); WHITE BLOOD COUNT (AUTO) 9.4 K/uL (4.8-10.8)
[2021-06-08] MEDS: INSULIN NPH 100 UNITS/ML 10 ML VIAL SUBCUT SCH (06:25)
[2021-06-08 06:40] LABS: CREATININE 4.76 mg/dL (0.55-1.30); PHOSPHORUS 7.5 mg/dL (2.7-4.5); POTASSIUM 4.5 mmol/L (3.5-5.1)
--- NOTE | 2021-06-08 06:45 | NUR ---
pt.requested medication;pain i have administered norco:7.5/325mg po.to assess the efficacy of the pain medication per pain mgx protocol.
[2021-06-08] MEDS ORDERED: HEPARIN SODIUM,PORCINE 5,000 UNITS/ML VIAL MC ONE (07:00)
[2021-06-08 08:00] VITALS: BP_SYST 137
--- NOTE | 2021-06-08 08:00 | NUR ---
OPENING NOTES: PATIENT RESTING IN BED. NO SIGN OF ACUTE DISTRESS NOTED. FALL AND SAFETY PRECAUTION REINFORCED. CALL LIGHT WITHIN REACH.
[2021-06-08 08:10] LABS: VANCOMYCIN,RANDOM 18.8 ug/mL
[2021-06-08] MEDS: NEPHROVITE, (FOLIC ACID/VITAMIN B COMP W-C 1 TAB) PO SCH (08:50)
[2021-06-08] MEDS: TAMSULOSIN HCL 0.4 MG CAP PO SCH (08:50)
[2021-06-08] MEDS: CHOLECALCIFEROL (VITAMIN D3) 2,000 UNIT TABLET PO SCH (08:51)
[2021-06-08] MEDS: ATENOLOL 50 MG TABLET (TENORMIN) PO SCH ×2 (09:00→20:58)
--- NOTE | 2021-06-08 09:30 | NUR ---
HD CATHETER REPLACEMENT: HEMODIALYSIS REPLACEMENT CATHETER AT BEDSIDE DONE BY DR. BURNS. TIME OUT DONE. PATIENT IN STABLE CONDITION.
[2021-06-08] MEDS: HYDROcodone/ACETAMIN 5-325 MG TAB (NORCO/ VICODIN) PO PRN ×2 (10:25→15:48)
--- NOTE | 2021-06-08 10:48 | NUR ---
PATIENT REFUSED TO BE SEEN BY P.T., STATES JUST GOT DONE W/ A PROCEDURE AND IS NOT FEELING WELL AT THIS TIME. SPOUSE PRESENT IN ROOM.
[2021-06-08 11:30] VITALS: BP_SYST 123
--- NOTE | 2021-06-08 13:32 | NUR ---
PAGED PAGED MADELIN SALEEM AT [phone] SPOKE WITH DAVID.
--- NOTE | 2021-06-08 15:24 | NUR ---
CM note:Discussed discharge to snf with patient and spouse/Monik at bedside, they aware still pending auth from [facility]. per dr. León , repeated Blood Culture is positive, the pt will need IV Cubicin q 48hr x 2 weeks which should be done at snf or at the infusion ctr. >> I s/w stevie Washington at [facility]. He will be calling [facility] to give an approval. CM will f/u.
[2021-06-08 15:26] VITALS: BP_SYST 133
--- NOTE | 2021-06-08 16:30 | NUR ---
hemodialysis at bedside; HD DONE, HD OUT 2500ML.
[2021-06-08] MEDS ORDERED: ALTEPLASE 2 MG VIAL MC ONE (16:45)
[2021-06-08] MEDS ORDERED: VANCOMYCIN HCL 500 MG in NS 100 ML IV ONE (17:00)
[2021-06-08] MEDS: INSULIN REGULAR, HUMAN 100 UNITS/ML, 10 ML VIAL (humuLIN R) SUBCUT PRN (17:34)
[2021-06-08] MEDS: CALCIUM ACETATE 667 MG CAP PO SCH (17:39)
[2021-06-08] MEDS: EPOETIN ALFA 10,000 UNITS/ML VIAL SUBCUT SCH (17:39)
[2021-06-08] MEDS ORDERED: ACETAMINOPHEN 325 MG TABLET PO PRN (18:45)
--- NOTE | 2021-06-08 19:30 | NUR ---
Opening note Received report and assumed care. S/P replacement of HD catheter by Dr Valentine, new [place] catheter [facility]. Reports pain 8/10 and requesting pain medication; patient will continue with [place] 7.5 mg as per MD orders. Able to use urinal. Will continue to monitor patient as per unit protocol.
--- NOTE | 2021-06-08 20:22 | NUR ---
Medication for pain [place] 7.5 mg given as per JAN PRN. Patient reported pain 8/10
[2021-06-08] MEDS: traZODone HCL 50 MG TABLET (DESYREL) PO SCH (20:58)
[2021-06-09 00:25] VITALS: BP_SYST 127
[2021-06-09] MEDS: HYDROcodone/ACETAMIN 7.5-325 MG TAB PO PRN ×5 (00:29→19:36)
--- NOTE | 2021-06-09 03:45 | NUR ---
Consultation Paged Reason for Consultation: Right Knee Pain Was consult called:Y Person who was notified: Sandi Consulting Physician: Dawson Thomson Ordering Physician: Dr. Silveira
[2021-06-09 06:18] LABS: BASOPHILS # (AUTO) 0.1 K/uL (0.0-0.2); BASOPHILS % (AUTO) 0.9 % (0.0-2.0); EOSINOPHILS # (AUTO) 0.2 K/uL (0.0-0.4); HEMATOCRIT 26.3 % (36-54); HEMOGLOBIN 8.3 g/dL (14.0-18.0); LYMPHOCYTES # (AUTO) 1.2 K/uL (1.0-5.5); LYMPHOCYTES % (AUTO) 13.6 % (20.5-51.5); MEAN CORPUSCULAR HEMOGLOBIN 25 pg (27-31); MEAN CORPUSCULAR HGB CONC 32 % (32-36); MEAN CORPUSCULAR VOLUME 79 fL (79.0-98.0); MONOCYTES # (AUTO) 0.9 K/uL (0.0-1.0); MONOCYTES % (AUTO) 10.6 % (1.7-9.3); NEUTROPHILS # (AUTO) 6.5 K/uL (1.8-7.7); NEUTROPHILS % (AUTO) 72.9 % (40.0-70.0); PLATELET COUNT (AUTO) 320 K/uL (130-430); RED BLOOD CELL COUNT(AUTO) 3.33 MIL/uL (4.2-6.2); RED CELL DISTRIBUTION WIDTH 16.5 % (9.0-15.0); WHITE BLOOD COUNT (AUTO) 8.9 K/uL (4.8-10.8)
[2021-06-09] MEDS: INSULIN NPH 100 UNITS/ML 10 ML VIAL SUBCUT SCH (06:35)
[2021-06-09 06:36] LABS: CALCIUM 7.1 mg/dL (8.4-11.0); CREATININE 3.83 mg/dL (0.55-1.30)
[2021-06-09 08:00] VITALS: BP_SYST 155
[2021-06-09] MEDS: CHOLECALCIFEROL (VITAMIN D3) 2,000 UNIT TABLET PO SCH (08:46)
[2021-06-09] MEDS: ATENOLOL 50 MG TABLET (TENORMIN) PO SCH ×2 (08:46→20:43)
[2021-06-09] MEDS: NEPHROVITE, (FOLIC ACID/VITAMIN B COMP W-C 1 TAB) PO SCH (08:46)
[2021-06-09] MEDS: TAMSULOSIN HCL 0.4 MG CAP PO SCH (08:46)
[2021-06-09] MEDS: CALCIUM ACETATE 667 MG CAP PO SCH ×3 (08:46→17:29)
--- NOTE | 2021-06-09 11:00 | NUR ---
Note Dr Silveira at bedside speaking to pt about transfer to higher level of care for MEGHANA and possible endocarditis. Questions/concerns were answered at this time. Call light within reach. Pt next to nurses station for close observation.
[2021-06-09 11:57] VITALS: BP_SYST 138
--- NOTE | 2021-06-09 13:41 | NUR ---
CM note: discussed with pt and son/Dawson sr dcp for transfer to higher level of care for possible endocarditis and MEGHANA per dr. Silveira 's order. Both pt ans son agreed with the transfer plan. >> Contacted Veronica BROWN, dept x2 since 1030 am for transfer pt to net work assistance. I was put on hold for a long period of time then the line cut off. >> Called [facility], s/w Sfoi admitting who said the md need to book the procedure first before the transfer. I LVM notify dr. Bauman to book the MEGHANA at [facility]. >> Called [facility] transfer ctr, s/w [place] who said there is no Tele bed today and does not know when one will be available. She will put pt on wait list. Faxing the referral to fax # , tel # [phone]. Addendum: 06/09/21 at 1452 by Genesis Palma RN >> Per dr. Bauman, he will book the MEGHANA next week. Said pt will have treatment here for a while, then he will take care of the booking at [facility]. -- Dr Silveira, Sabrina, and pt made aware.
--- NOTE | 2021-06-09 14:22 | NUR ---
CM note: Marked "URGENT " the referral to higher level of care fax request to [facility] DEPT fax # [phone]. At this time . Per Will/[employer] net: there is no CM assigned to this account.
[2021-06-09] MEDS ORDERED: methylPREDNISolone ACETATE 40 MG/ML IM ONE (14:30)
[2021-06-09] MEDS ORDERED: PROPOFOL 200MG/ 20ML VIAL (DIPRIVAN) IV ONE (14:30)
--- NOTE | 2021-06-09 14:50 | NUR ---
NOTE DR PATRICK came to pt's bedside at 1600 and did right knee aspiration (removed 70-80cc of synovial fluid) 10cc of synovial fluid sent to lab/micro for cell count/gout crystal count and C&S. Specimen was sent to lab at this time. Pt given [place] 7.5mg PO for pain at this time. Pt's at bedside at this time. Pt denies any needs. Call light within reach. Addendum: 06/09/21 at 1456 by Lashay Cxo RN pt was given Depo-Medrol and Diprivan on right knee at bedside by Dr Patrick.
[2021-06-09 15:40] LABS: BODY FLUID SOURCE/ TYPE SYNOVIAL; SOURCE/TYPE ,BODY FLUID SYNOVIAL
[2021-06-09 15:41] LABS: BODY FLUID COLOR LT YELLOW (LT YELLOW); BODY FLUID TOTAL VOLUME 11.5 mL
[2021-06-09] MEDS: INSULIN REGULAR, HUMAN 100 UNITS/ML, 10 ML VIAL (humuLIN R) SUBCUT PRN ×2 (16:11→20:40)
[2021-06-09 16:22] VITALS: BP_SYST 122
--- NOTE | 2021-06-09 18:10 | NUR ---
Note Pt sitting on side of bed with and son by side, for 2 hours. Pt was checked on q1' and PRN all shift for needs and care. Pt's bed in low position and bed alarm on all shift. Pt next to nurses' station for close observation. Pt had call light within reach all shift. Tele unit attached and intact all shift. Dr Hsu was at bedside assessing pt this afternoon, answered questions/concerns. LIJ intact all shift. LAC IV intact and patent. No needs noted at this time. Pt was assisted to BSC X2 for bowel movements with moderate assist.
--- NOTE | 2021-06-09 19:36 | NUR ---
NORCO 7.5/325MG 1 TABLET GIVEN PO FOR C/O 7/10 GENERALIZED PAIN. PT INSTRUCTED TO CALL FOR ASSISTANCE BEFORE GETTING OUT OF BED IF HE FEELS DIZZY OR DROWSY AND PT VERBALIZED UNDERSTANDING. FALL AND SAFETY PRECAUTIONS ARE IN PLACE. CALL LIGHT IS WITH PT AND BED ALARM IS ON.
[2021-06-09 20:00] VITALS: BP_SYST 138
--- NOTE | 2021-06-09 20:40 | NUR ---
ACCUCHECK 209 AND SKIN REMAINS WARM AND DRY TO TOUCH. REGULAR INSULIN 2 UNITS GIVEN SQ. PT ATE 1/2 TURKEY SANDWICH FOR HS SNACK.
[2021-06-09] MEDS: traZODone HCL 50 MG TABLET (DESYREL) PO SCH (20:43)
[2021-06-09 22:11] LABS: BODY FLUID GLUCOSE 71 mg/dL; BODY FLUID TOTAL PROTEIN 3.8 g/dL
[2021-06-09 23:20] LABS: APPEARANCE,SPUN,BODY FLUID CLOUDY (CLEAR); LYMPHOCYTES, BODY FLUID 3 %; MONOCYTES,BODY FLUID 3 %; NEUTROPHIL, BODY FLUID 94 %; RBC, BODY FLUID 6000 /uL; WBC, BODY FLUID 101100 /uL
[2021-06-09 23:26] LABS: BODY FLUID CRYSTALS NO CRYSTALS SEEN (None Seen)
[2021-06-10 00:03] VITALS: BP_SYST 123
[2021-06-10] MEDS: HYDROcodone/ACETAMIN 7.5-325 MG TAB PO PRN ×4 (03:41→21:54)
[2021-06-10] MEDS: INSULIN REGULAR, HUMAN 100 UNITS/ML, 10 ML VIAL (humuLIN R) SUBCUT PRN ×4 (06:51→22:23)
[2021-06-10] MEDS: INSULIN NPH 100 UNITS/ML 10 ML VIAL SUBCUT SCH (06:52)
--- NOTE | 2021-06-10 07:38 | NUR ---
rn opening note patient is awake and sitting up at edge of bed. Patient is refusing bed alarm at this time. educated patient and he states he will not try and get up on his own. patient does have robinson light with him, educated on how to use. Patient is also close to nurses station. Patient is eating breakfast, no other needs at this time.
[2021-06-10] MEDS: TAMSULOSIN HCL 0.4 MG CAP PO SCH (08:16)
[2021-06-10] MEDS: CHOLECALCIFEROL (VITAMIN D3) 2,000 UNIT TABLET PO SCH (08:18)
[2021-06-10] MEDS: NEPHROVITE, (FOLIC ACID/VITAMIN B COMP W-C 1 TAB) PO SCH (08:18)
[2021-06-10] MEDS: CALCIUM ACETATE 667 MG CAP PO SCH ×3 (08:18→18:05)
[2021-06-10] MEDS: ATENOLOL 50 MG TABLET (TENORMIN) PO SCH ×2 (08:19→22:19)
[2021-06-10 08:21] VITALS: BP_SYST 138
--- NOTE | 2021-06-10 09:27 | NUR ---
CM note: s/w Cici/[facility] , Precertification dept # [phone], stated the authorization process would take 24 to 72 hours for approval. Said she verified with the other internal auth dept, they have not received the request. Cici gave me the new urgent fax number which I refaxed the request to # [phone]. [place] asked to call back tomorrow for follow up. >> [facility] : s/w with Sofi/admitting dept, stated dr. Bauman booked the MEGHANA procedure at 12 noon tomorrow. I confirmed with the MD as well. Dr Bauman requested pt to be at the facility by noon tomorrow. Then the pt will return back to [facility] for continuing treatments. >> Per Sofi, the pt must have auth from [facility], [facility] and possible [facility] before the transfer. -- Dr Bauman aware. >> [facility]/Transfer Ctr: Per Dr Enoch Redd is reviewing the case. No accepting decision yet. She also needs auth before the transfer as well.--Dr Bauman aware.
--- NOTE | 2021-06-10 10:00 | NUR ---
Nutrition F/U Admitting Diagnosis: Hypoglycemia Medical History Comment: PMH: DM, HTN, ESRD on HD, HLD, polio, and BPH per physician notes Pt was also found w/ severe protein malnutrition per physician notes 06/10 notes: DJD of the Right Knee SARS-CoV-2 Ag (Rapid) Negative 05/29 Subjective Information: RD visited pt at bedside today. Pt was sitting at the edge of the bed during visit, pleasant and able to answer RD questions. Pt has been provided w/ diet education during previous RD visit but still had questions about diet and foods that he has been requesting for. RD re-educated pt, he verbalized understanding. Pt reports that he has improved food intake for the past 3 days. (PO intake: 70% average of 5 days). Per EMR review, pt is S/P LIJ HD cath placement and last dialysis was yesterday. Pt was seen by Speech therapist on 05/30 and noted pt to have moderate oral dysphagia and rec Mechanical soft finely chopped diet. Pt had been c/o right knee pain and states that he is not able to ambulate lately because of it. Pt was seen by Ortho yesterday and had arthrocentesis at bedside, 90ml gouty fluid aspirated. Sher scale: 19, per RN notes, dry scab to left/right leg, 2+ pitting edema to right leg. Pt is a/w transfer to higher level of care ([facility]) for possible endocarditis and MEGHANA tomorrow. Once diet is advanced after procedure, pt may benefit from adding CCHO/Renal diet to current texture modified diet order. Adding ONS is also warranted. Current Diet Order/Nutrition Support: Mechanical soft x1 day, Pending NPO Pertinent Medications: nephrovite, VIT D, Insulin, Heparin, Desyrel, Phoslo, Procrit, VIT B complex Pertinent Labs: Na 136 WNL, BG 201 H, POC BG 255 H, BUN 35 H, CRE 3.83 H, 05/30 HgbA1c 6.7H Height: 5'7"/67" Weight: 161#/73 kilograms. New weight: 06/02: 163#/74kg (06/02); 166#/75 kg (06/04); 155#/70.5 kg (06/10)--11# wt loss possibly d/t fluid loss in HD and anthrocentesis. Body Mass Index: 25.21 kg/m2. New BMI: 26.1 kg/m2 (06/04); 24.4 kg/m2 (06/10) [place]/Adjusted Body Weight: IBW: 148#/67 kg Estimated Energy Expenditure (kcals/day) 6327-9787 kcal/day (30-35 kcal/kg CBW d/t ESRD on HD) Estimated Protein Required (g/day) 88-110 gm/day (1.2-1.5 gm/kg CBW d/t ESRD on HD) Estimated Fluid Required (l/day) Per physician d/t ESRD Problem/Etiology/Signs/Symptoms Suboptimal nutritional intakes related to lack of appetite as evidenced by poor PO intake records. (*improving) Altered nutrition-related labs related to endocrine and renal dysfunction as evidenced by abnormal BG, BUN, and CRE lab values. (*ongoing) Expected Outcomes/Goals - Monitor appetite and PO intakes w/ goal of pt meeting at least 75% of estimated nutritional needs, labs trending WNL, normal GI function, and skin integrity/wt maintenance Dietitian Recommendations * Recommend: CCHO, Renal standard mechanical soft finely chopped diet w/ Nepro BID once procedure is done. (ONS provides 850 kcal/day, 38 gm protein/day) Follow Up Moderate Risk: F/U in 3-5 days
--- NOTE | 2021-06-10 10:11 | NUR ---
Dietitian Recommendations * Recommend: CCHO, Renal standard mechanical soft finely chopped diet w/ Nepro BID once procedure is done. (ONS provides 850 kcal/day, 38 gm protein/day) Please see Nutrition F/U note for details.
--- NOTE | 2021-06-10 11:05 | NUR ---
PAIN MEDICATION PATIENT COMPLAINS OF PAIN MEDICATED PER ORDER. PATIENT IS CURRENTLY HAVING HIS HEMODYALSIS. TYLERTENT HAS NO OTHER NEEDS AT THIS TIME. PATIENT HAS CALL LIGHT WITH HIM EDUCATED TO USE FOR ASSISTANCE. PATIENT IS CLOSE TO NURSES STATION. HEMODIALYSIS NURSE AT BEDSIDE.
[2021-06-10] MEDS ORDERED: HEPARIN SODIUM,PORCINE 5,000 UNITS/ML VIAL MC ONE (12:00)
--- NOTE | 2021-06-10 12:01 | NUR ---
HIGH ALERT NOTE: Called Dr. herndon back identified within the medical roster to verify physician authenticity.heparin for hemodialysis for port Accu check done no coverage needed. Patients scheduled medication also given per order. patient is currently receiving hemodialysis. patient has all safety precautions in place. call light with him. patient is close to nurses station no other needs at this time.
[2021-06-10 12:08] VITALS: BP_SYST 147
--- NOTE | 2021-06-10 13:44 | NUR ---
PAGED PAGED MADELIN SALEEM AT [phone] SPOKE WITH LISBETH.
--- NOTE | 2021-06-10 14:35 | NUR ---
CM note: communication with [facility]/Tramaine / Sabrina director and dr Bauman. Dr Bauman spoke with dr. Canchola who will do the MEGHANA as out patient and return the pt back to [facility]. The MEGHANA scheduling for tomorrow at 1400. Tramaine will confirm with and call me back with the out patient admission process. Addendum: 06/10/21 at 1629 by Genesis Palma RN >> Confirmation from [facility]: the pt is accepted by dr. Canchola as out patient. The pt should be at the facility by 12 noon for the procedure at 2 pm. CM to fax the signed transfer back agreement form and Covid-19 test result done within 48 hr to [facility]. Then she will release the tele bed for the transfer. >> EMELYN /Reema will have dr. Silveira or dr Bauman signed the Transfer back agreement and complete the Covid-19 testing.
[2021-06-10 16:21] VITALS: BP_SYST 123
[2021-06-10] MEDS: EPOETIN ALFA 10,000 UNITS/ML VIAL SUBCUT SCH (16:33)
[2021-06-10] MEDS ORDERED: VANCOMYCIN HCL 500 MG in NS 100 ML IV ONE (17:00)
--- NOTE | 2021-06-10 17:40 | NUR ---
DR. SUMMERS AT BEDSIDE ORDERS RECEIVED NPO AT 0000 OK TO HAVE DINNER. OK TO GIVE INSULIN. HOLD NPH AT AM. PATIENT IS AWAKE AND ALERT. PATIENT IS SITTING UP IN BED NO SIGNS OF ANY DISTRESS. PATIENT HAS ALL SAFETY PRECAUTIONS IN PLACE. NO OTHER NEEDS AT THIS TIME.
--- NOTE | 2021-06-10 18:54 | NUR ---
rn closing note Patients iv catheter is leaking,iv removed catheter intact. new iv site obtained. 22g to right FA good blood return flushing well. patient is eating dinner. patient is aware npo at 0000.Patient has call light with him educated to use for assistance. Patient is close to nurses station. patient shows no signs of any distress,breathing is equal and non labored. Patient has all safety precautions in place.
[2021-06-10 20:00] VITALS: BP_SYST 135
[2021-06-10] MEDS: traZODone HCL 50 MG TABLET (DESYREL) PO SCH (22:19)
[2021-06-11] VITALS: BP_SYST 130
[2021-06-11] MEDS ORDERED: MORPHINE 2 MG/ML INJ. SYRINGE IVP PRN ×4 (03:45→04:00)
[2021-06-11] MEDS ORDERED: MORPHINE 4 MG INJ. 4 MG/ML VIAL IVP PRN (04:00)
[2021-06-11] MEDS: INSULIN NPH 100 UNITS/ML 10 ML VIAL SUBCUT SCH (05:54)
--- NOTE | 2021-06-11 06:49 | NUR ---
PT IS RESTING COMFORTABLY IN BED. ALL PT'S NEEDS WERE ATTENDED TO. PT REMAINS NPO FOR MEGHANA AT [facility] TODAY. WILL ENDORSE TO DAY SHIFT NURSE.
[2021-06-11 06:53] LABS: BASOPHILS # (AUTO) 0.1 K/uL (0.0-0.2); BASOPHILS % (AUTO) 0.8 % (0.0-2.0); EOSINOPHILS # (AUTO) 0.2 K/uL (0.0-0.4); EOSINOPHILS % (AUTO) 2.7 % (0.0-4.0); HEMATOCRIT 25.5 % (36-54); HEMOGLOBIN 8.1 g/dL (14.0-18.0); LYMPHOCYTES # (AUTO) 1.1 K/uL (1.0-5.5); LYMPHOCYTES % (AUTO) 15.3 % (20.5-51.5); MEAN CORPUSCULAR HEMOGLOBIN 26 pg (27-31); MEAN CORPUSCULAR HGB CONC 32 % (32-36); MEAN CORPUSCULAR VOLUME 80 fL (79.0-98.0); MONOCYTES # (AUTO) 0.5 K/uL (0.0-1.0); MONOCYTES % (AUTO) 7.3 % (1.7-9.3); NEUTROPHILS # (AUTO) 5.5 K/uL (1.8-7.7); NEUTROPHILS % (AUTO) 73.9 % (40.0-70.0); PLATELET COUNT (AUTO) 299 K/uL (130-430); RED BLOOD CELL COUNT(AUTO) 3.18 MIL/uL (4.2-6.2); RED CELL DISTRIBUTION WIDTH 17.1 % (9.0-15.0); WHITE BLOOD COUNT (AUTO) 7.5 K/uL (4.8-10.8)
[2021-06-11 07:23] LABS: ALBUMIN 1.6 g/dL (3.4-4.8); CALCIUM 7.3 mg/dL (8.4-11.0); CREATININE 3.37 mg/dL (0.55-1.30); POTASSIUM 5.3 mmol/L (3.5-5.1); TOTAL BILIRUBIN 0.7 mg/dL (0.0-1.0)
--- NOTE | 2021-06-11 07:30 | NUR ---
ASSUMPTION OF CARE: RECEIVED PT A/A/OX4, DX: ELECTROLYTE IMBALANCE, R/T HYPOGLYCEMIA, VSS, AFEBRILE, BREATH SOUNDS ARE CLEAR, BREATHING UNLABORED, SATURATING 94-95 ORA, NO S/S OF DISTRESS, PULSES PALPABLE, IV SITE INTACT, PATENT, NO REDNESS OR SWELLING, SCHEDULED FOR [facility]NA AT [facility] THIS AFTERNOON, REMAINS NPO [place], CONSENT SIGNED, FAMILY AWARE, AND ADDITIONAL FAMILY MEMBERS AT BEDSIDE, ORIENTED TO UNIT, CALL LIGHT PLACED WITHIN REACH, WILL CONT' TO MONITOR AND ASSESS.
[2021-06-11] MEDS: CALCIUM ACETATE 667 MG CAP PO SCH ×3 (08:00→18:00)
--- NOTE | 2021-06-11 08:10 | NUR ---
LISS note: late entry: Unable to get ambulance transportation auth from PT's insurance: [employer] P[employer]/ UM dept : pt does not have benefits. [facility]: per pre-auth dept, [facility] is at risk and vice a versa. LISS Bennett Director made aware and advised to call [facility] ambulance.
--- NOTE | 2021-06-11 08:47 | NUR ---
CM note: Faxed the signed transfer back agreement and Covid test result to [facility] transfer ctr and received bed assignment to room 212, Observation unit 2W. Ambulance crew is to check in at ER 5 then goes to 2nd floor. The pt is expecting to be at destination by 1200 noon. >> Booked round trip transport with [facility], ALS transfer, pecan picker time at 1130. The returned trip is on will call.
[2021-06-11 08:51] VITALS: BP_SYST 146
--- NOTE | 2021-06-11 08:54 | NUR ---
PHYSICAL THERAPY CO-SIGN The Physical Therapy Progress Notes documented by Seaman Officer have been reviewed. Reviewed/Co-Signed by: Veena Wiseman Documentation Done by: RAHEEL LAWSON PTA Addendum: 06/11/21 at 0856 by Veena Wiseman PT Amended: Links added.
--- NOTE | 2021-06-11 08:55 | NUR ---
PHYSICAL THERAPY CO-SIGN The Physical Therapy Progress Notes documented by A/C Technician have been reviewed. Reviewed/Co-Signed by: Veena Wiseman Documentation Done by: RAHEEL LAWSON PTA Addendum: 06/11/21 at 0856 by Veena Wiseman PT Amended: Links added.
--- NOTE | 2021-06-11 08:55 | NUR ---
PHYSICAL THERAPY CO-SIGN The Physical Therapy Progress Notes documented by Clinical Specialty Rep have been reviewed. Reviewed/Co-Signed by: Veena Wiseman Documentation Done by: RAHEEL LAWSON PTA Addendum: 06/11/21 at 0856 by Veena Wiseman PT Amended: Links added.
[2021-06-11] MEDS: CHOLECALCIFEROL (VITAMIN D3) 2,000 UNIT TABLET PO SCH (09:00)
[2021-06-11] MEDS: ATENOLOL 50 MG TABLET (TENORMIN) PO SCH ×2 (09:00→20:50)
[2021-06-11] MEDS: NEPHROVITE, (FOLIC ACID/VITAMIN B COMP W-C 1 TAB) PO SCH (09:00)
[2021-06-11] MEDS: TAMSULOSIN HCL 0.4 MG CAP PO SCH (09:00)
[2021-06-11 09:37] LABS: ERYTHROCYTE SEDIMENTATION RATE 50 MM/HR (0-15)
[2021-06-11 12:25] VITALS: BP_SYST 156
[2021-06-11] MEDS: INSULIN REGULAR, HUMAN 100 UNITS/ML, 10 ML VIAL (humuLIN R) SUBCUT PRN ×2 (18:07→21:04)
--- NOTE | 2021-06-11 18:11 | NUR ---
ATTENDING MD DR SUMMERS WAS CALLED, RE: PT WANTS NORCO THAT WAS DISCONTINUED. SPOKE TO SHILPI.
[2021-06-11] MEDS ORDERED: HYDROcodone/ACETAMIN 5-325 MG TAB (NORCO/ VICODIN) PO PRN (18:30)
[2021-06-11] MEDS ORDERED: NALOXONE HCL 0.4 MG/ML AMP (NARCAN) IVP PRN (18:30)
[2021-06-11] MEDS ORDERED: ONDANSETRON HCL 4 MG/2 ML VIAL IVP PRN (18:30)
[2021-06-11] MEDS ORDERED: ACETAMINOPHEN 325 MG TABLET PO PRN (18:30)
[2021-06-11] MEDS ORDERED: HYDROcodone/ACETAMIN 7.5-325 MG TAB PO ONE (18:30)
[2021-06-11] MEDS ORDERED: NAFCILLIN SODIUM 2 GM in NS 100 ML IV ONE (19:15)
--- NOTE | 2021-06-11 19:20 | NUR ---
CHANGE OF SHIFT; pt, endorsed by day shift. came from [facility]. S / P MEGHANA. no acute distress. pt. eating his dinner.call light at bedside.
[2021-06-11] MEDS ORDERED: SODIUM POLYSTYRENE SULFONATE 15 GM/60 ML UDBTL PO ONE (19:30)
[2021-06-11] MEDS ORDERED: cloNIDine HCL 0.1 MG TABLET PO PRN (19:45)
[2021-06-11] MEDS ORDERED: DEXTROSE 50% JECT 50 ML DISP.SYRIN IVP PRN (19:45)
[2021-06-11 20:00] VITALS: BP_SYST 144
--- NOTE | 2021-06-11 20:00 | NUR ---
NOTES: Dr. Silveira here at bedside with new orders. K 5.3, Kayexalate ordered and type ans screen.pt. might need Blood transfusion if H/H drop below 8 per MD. VS checked. IV lock on rt. wrist. On hemodialysis MWF. noted swelling on bilateral lower extremities. on gun fitter and shows sinus rhythm. Kristine cath on left jugular for HD access. on fall risk precautions. call light at bedside.
[2021-06-11] MEDS: traZODone HCL 50 MG TABLET (DESYREL) PO SCH (22:40)
[2021-06-11] MEDS: HYDROcodone/ACETAMIN 7.5-325 MG TAB PO PRN (22:43)
--- NOTE | 2021-06-11 22:45 | NUR ---
NOTES: pt. medicated with Cerulean po for c/o generalized pain. repositioned self fpr comfort.
--- NOTE | 2021-06-12 00:01 | NUR ---
NOTES; pt. checked and sleeping. no distress. call light at bedside.
[2021-06-12 00:07] VITALS: BP_SYST 147
[2021-06-12] MEDS: NAFCILLIN SODIUM 2 GM in NS 100 ML IV SCH ×4 (00:26→17:27)
--- NOTE | 2021-06-12 01:00 | NUR ---
NOTES: pt. called and said he could not back to sleep, no medicatins due at this time.
--- NOTE | 2021-06-12 01:58 | NUR ---
NOTES: pt. awakened and used bedside commode.
--- NOTE | 2021-06-12 02:31 | NUR ---
NOTES: pt. been sitting at the edge of the bed. condition observed.
[2021-06-12] MEDS: HYDROcodone/ACETAMIN 7.5-325 MG TAB PO PRN ×3 (02:48→16:04)
--- NOTE | 2021-06-12 05:00 | NUR ---
NOTES: pt. sleeping. no further complaints at this time.
--- NOTE | 2021-06-12 06:42 | NUR ---
CLOSING NOTES; PT. AWAKENED FOR DUE iIV ANTIBIOTIC. WILL CHECK BS. IV SITE PATENT. FOR FURTHER CARE AND ASSISTANCE. FOR HEMODIALYSIS TODAY. CALL LIGTH AT BEDSIDE.
[2021-06-12 06:57] LABS: BASOPHILS # (AUTO) 0.1 K/uL (0.0-0.2); EOSINOPHILS # (AUTO) 0.2 K/uL (0.0-0.4); EOSINOPHILS % (AUTO) 2.6 % (0.0-4.0); HEMATOCRIT 24.3 % (36-54); HEMOGLOBIN 7.7 g/dL (14.0-18.0); LYMPHOCYTES # (AUTO) 1.3 K/uL (1.0-5.5); LYMPHOCYTES % (AUTO) 17.2 % (20.5-51.5); MEAN CORPUSCULAR HEMOGLOBIN 26 pg (27-31); MEAN CORPUSCULAR HGB CONC 32 % (32-36); MEAN CORPUSCULAR VOLUME 80 fL (79.0-98.0); MONOCYTES # (AUTO) 0.7 K/uL (0.0-1.0); MONOCYTES % (AUTO) 8.8 % (1.7-9.3); NEUTROPHILS # (AUTO) 5.4 K/uL (1.8-7.7); NEUTROPHILS % (AUTO) 70.4 % (40.0-70.0); PLATELET COUNT (AUTO) 288 K/uL (130-430); RED BLOOD CELL COUNT(AUTO) 3.02 MIL/uL (4.2-6.2); RED CELL DISTRIBUTION WIDTH 16.5 % (9.0-15.0); WHITE BLOOD COUNT (AUTO) 7.7 K/uL (4.8-10.8)
[2021-06-12] MEDS ORDERED: INSULIN NPH 100 UNITS/ML 10 ML VIAL SUBCUT SCH (07:00)
[2021-06-12] MEDS: INSULIN REGULAR, HUMAN 100 UNITS/ML, 10 ML VIAL (humuLIN R) SUBCUT PRN ×2 (07:01→17:35)
[2021-06-12 07:34] LABS: CREATININE 3.55 mg/dL (0.55-1.30); POTASSIUM 5.2 mmol/L (3.5-5.1)
[2021-06-12 07:49] LABS: CALCIUM 6.8 mg/dL (8.4-11.0)
[2021-06-12 08:00] VITALS: BP_SYST 152
--- NOTE | 2021-06-12 08:00 | NUR ---
ASSUMPTION OF CARE: RECEIVED PT A/A/OX4, DX: ELECTROLYTE IMBALANCE, R/T HYPOGLYCEMIA, VSS, AFEBRILE, BREATH SOUNDS ARE CLEAR, BREATHING UNLABORED, SATURATING 100% ORA, NO S/S OF DISTRESS, PULSES PALPABLE, IV SITE INTACT, PATENT, NO REDNESS OR SWELLING, ORIENTED TO UNIT, CALL LIGHT PLACED WITHIN REACH, WILL CONT' TO MONITOR AND ASSESS.
[2021-06-12 08:51] LABS: VANCOMYCIN,RANDOM 12.4 ug/mL
[2021-06-12] MEDS: CHOLECALCIFEROL (VITAMIN D3) 2,000 UNIT TABLET PO SCH (08:56)
[2021-06-12] MEDS: CALCIUM ACETATE 667 MG CAP PO SCH ×3 (08:56→17:26)
[2021-06-12] MEDS: NEPHROVITE, (FOLIC ACID/VITAMIN B COMP W-C 1 TAB) PO SCH (08:56)
[2021-06-12] MEDS: TAMSULOSIN HCL 0.4 MG CAP PO SCH (08:56)
--- NOTE | 2021-06-12 09:00 | NUR ---
DIGITAL PRINT OPERATOR: MORNING MEDS GIVEN, PER ORDERED BY Angel, TOLERATED WELL, WILL CONT' TO MONITOR AND ASSESS.
[2021-06-12] MEDS: ATENOLOL 50 MG TABLET (TENORMIN) PO SCH (09:05)
--- NOTE | 2021-06-12 09:23 | NUR ---
PHYSICAL THERAPY CO-SIGN The Physical Therapy Progress Notes documented by Timekeeper Supervisor have been reviewed. Reviewed/Co-Signed by: Veena Wiseman Documentation Done by: RAHEEL LAWSON PTA Addendum: 06/12/21 at 6996 by Veena Wiseman PT Amended: Links added.
[2021-06-12] MEDS ORDERED: VITD2000 PO (09:44)
[2021-06-12] MEDS ORDERED: BLOO-1360 XX (09:44)
[2021-06-12] MEDS ORDERED: PHO667 PO (09:44)
[2021-06-12] MEDS ORDERED: NEPH PO (09:44)
[2021-06-12] MEDS ORDERED: SSREG SUBCUT (09:44)
[2021-06-12] MEDS ORDERED: D5W 1,000 ML IV PRN (09:45)
[2021-06-12] MEDS ORDERED: GLUCOSE (DEXTROSE) ORAL GEL -Adults PO PRN (09:45)
[2021-06-12] MEDS ORDERED: DEXTROSE 50%-WATER 50 ML DISP.SYRIN IVP PRN (09:45)
--- NOTE | 2021-06-12 10:00 | NUR ---
HEMODIALYSIS: H/D NURSE AT BEDSIDE FOR SCHEDULED TX, PT IS A/A/OX4, RESTING IN POSITION OF COMFORT, NO C/O PAIN OR DISCOMFORT, WILL CONT' WITH POC.
[2021-06-12 12:12] LABS: INR 1.1 (0.80-1.20); PROTHROMBIN TIME 11.3 SECS (9.5-12.5)
[2021-06-12] MEDS: HEPARIN SODIUM, PORCINE 10,000 UNITS/ 10 ML VIAL MC PRN (12:20)
[2021-06-12 12:21] VITALS: BP_SYST 142
--- NOTE | 2021-06-12 14:53 | NUR ---
ID MD DR SON WAS CALLED, RE: CONTINUED ANTIBIOTICS ORDER FOR HOME USE. SPOKE TO RUFINO.
[2021-06-12 15:14] VITALS: BP_SYST 130
--- NOTE | 2021-06-12 16:32 | NUR ---
Referral for home antibiotics sent to [facility] Radha Ballard [phone]. She will call back to verify they can provide IV ABX for the patient.
[2021-06-12] MEDS ORDERED: DAPTOmycin 500 MG in NS 50 ML IV SCH (17:00)
[2021-06-12] MEDS ORDERED: VANCOMYCIN HCL 750 MG in NS 250 ML IV ONE (17:00)
[2021-06-12] MEDS: EPOETIN ALFA 10,000 UNITS/ML VIAL SUBCUT SCH (17:25)
[2021-06-12 18:48] VITALS: BP_SYST 130
--- NOTE | 2021-06-12 19:30 | NUR ---
CHANGE OF SHIFT; endorsed pt. going home. discharge instructions given bu nurse Jany. discontinued IV lock on rt. hand/wrist. pt. with new PICC line on rt. upper arm . Marck cath on left jugular for Hemodialysis access, secured with paper tape and PICC line. off rn cardiac rehab. at bedside. pt. will be discharge with Home Health and IV antibiotic.
--- NOTE | 2021-06-12 19:41 | NUR ---
NOTES; pt. discharged in stable condition , accompanied by and son, very eager to go home.
== END 2021-06-12 19:40 | disposition home health service (06) | DRG 280 ==
LOC: SED 06:53 → STU 08:16
PROVIDERS: ADMIT Internal Medicine; ATTEND Internal Medicine
PROC: 5A1D70Z Performance of Urinary Filtration, Intermittent, Less than 6 Hours Per Day (ICD-10-PCS; 2021-05-29)
PROC: 5A1D70Z Performance of Urinary Filtration, Intermittent, Less than 6 Hours Per Day (ICD-10-PCS; 2021-05-30)
PROC: 5A1D70Z Performance of Urinary Filtration, Intermittent, Less than 6 Hours Per Day (ICD-10-PCS; 2021-06-02)
PROC: 0DB58ZX Excision of Esophagus, Via Natural or Artificial Opening Endoscopic, Diagnostic (ICD-10-PCS; 2021-06-03)
PROC: 0DB68ZX Excision of Stomach, Via Natural or Artificial Opening Endoscopic, Diagnostic (ICD-10-PCS; 2021-06-03)
PROC: 0D758ZZ Dilation of Esophagus, Via Natural or Artificial Opening Endoscopic (ICD-10-PCS; 2021-06-03)
PROC: 5A1D70Z Performance of Urinary Filtration, Intermittent, Less than 6 Hours Per Day (ICD-10-PCS; 2021-06-04)
PROC: 0JPV3XZ Removal of Tunneled Vascular Access Device from Upper Extremity Subcutaneous Tissue and Fascia, Percutaneous Approach (ICD-10-PCS; 2021-06-05)
PROC: 05PYX3Z Removal of Infusion Device from Upper Vein, External Approach (ICD-10-PCS; 2021-06-05)
PROC: 02HV33Z Insertion of Infusion Device into Superior Vena Cava, Percutaneous Approach (ICD-10-PCS; principal; 2021-06-08)
PROC: B548ZZA Ultrasonography of Superior Vena Cava, Guidance (ICD-10-PCS; 2021-06-08)
PROC: 5A1D70Z Performance of Urinary Filtration, Intermittent, Less than 6 Hours Per Day (ICD-10-PCS; 2021-06-08)
PROC: 02HV33Z Insertion of Infusion Device into Superior Vena Cava, Percutaneous Approach (ICD-10-PCS; 2021-06-08)
PROC: 3E0U33Z Introduction of Anti-inflammatory into Joints, Percutaneous Approach (ICD-10-PCS; 2021-06-09)
PROC: 3E0U3BZ Introduction of Anesthetic Agent into Joints, Percutaneous Approach (ICD-10-PCS; 2021-06-09)
PROC: 0S9C3ZZ Drainage of Right Knee Joint, Percutaneous Approach (ICD-10-PCS; 2021-06-09)
PROC: 5A1D70Z Performance of Urinary Filtration, Intermittent, Less than 6 Hours Per Day (ICD-10-PCS; 2021-06-10)
PROC: 30233N1 Transfusion of Nonautologous Red Blood Cells into Peripheral Vein, Percutaneous Approach (ICD-10-PCS; 2021-06-12)
PROC: 5A1D70Z Performance of Urinary Filtration, Intermittent, Less than 6 Hours Per Day (ICD-10-PCS; 2021-06-12)
DX: T80.211A Bloodstream infection due to central venous catheter, initial encounter (principal); A41.01 Sepsis due to Methicillin susceptible Staphylococcus aureus; I21.A1 Myocardial infarction type 2; N18.6 End stage renal disease; E43 Unspecified severe protein-calorie malnutrition; I12.0 Hypertensive chronic kidney disease with stage 5 chronic kidney disease or end stage renal disease; I38 Endocarditis, valve unspecified; M00.861 Arthritis due to other bacteria, right knee; E11.22 Type 2 diabetes mellitus with diabetic chronic kidney disease; E11.649 Type 2 diabetes mellitus with hypoglycemia without coma; E78.5 Hyperlipidemia, unspecified; E87.6 Hypokalemia; F17.290 Nicotine dependence, other tobacco product, uncomplicated; Z20.822 Contact with and (suspected) exposure to COVID-19; K22.2 Esophageal obstruction; K22.4 Dyskinesia of esophagus; K22.5 Diverticulum of esophagus, acquired; M10.061 Idiopathic gout, right knee; R13.10 Dysphagia, unspecified; K29.70 Gastritis, unspecified, without bleeding; D63.8 Anemia in other chronic diseases classified elsewhere; K44.9 Diaphragmatic hernia without obstruction or gangrene; M17.11 Unilateral primary osteoarthritis, right knee; M46.40 Discitis, unspecified, site unspecified; N40.0 Benign prostatic hyperplasia without lower urinary tract symptoms; Y84.8 Other medical procedures as the cause of abnormal reaction of the patient, or of later complication, without mention of misadventure at the time of the procedure; Z79.4 Long term (current) use of insulin; Z86.12 Personal history of poliomyelitis; Z99.2 Dependence on renal dialysis; Z68.24 Body mass index [BMI] 24.0-24.9, adult; Z79.899 Other long term (current) drug therapy
CPT/HCPCS: 36415; 43239; 70470-TC; 71045; 72125-TC; 72128; 72132-TC; 72148; 73560-TC; 74220-TC; 76376; 76937; 80048; 80053; 80061; 80202; 82009; 82947; 82962; 83036; 83540; 83550; 83605; 83970; 84100; 84157; 84484; 84550; 85025; 85610-TC; 85651-TC; 85730-TC; 86140; 86886; 86900; 86901; 86920; 87040-TC; 87070-TC; 87081; 87186-TC; 88305; 88312; 88313; 89051-TC; 89060-TC; 90935; 90937; 92610-GN; 93005; 93306; 93970; 96374; 97110-GP; 97112-GP; 97116-GP; 97163-GP; 97530-GP; 99285; G0378; J0610; J0878; J0885; J1030; J1644; J1815; J2001; J2250; J2270; J2997; J3010; J3370; J3490; J7050; P9021; Q9967

== ENCOUNTER 2021-12-30 07:35 | Emergency (ER) | payer OTHER, MEDICAID, SELFPAY ==
[~2021-12-30] VITALS: Ht 170.2 cm; Wt 72.6 kg
[2021-12-30 07:35] VITALS: BP_SYST 131
[~2021-12-30 07:35] MED LIST changes: +AMIN30LI2 PO; +ASCO500T10 PO; +BLOO-1360 XX; +CYAN100097 PO; +CYAN1TAB71; +CYCL10TA24 PO; +DICL100G33 TP; +DOCU250C14 PO; +DULO60CA42 PO; +ERTA1VIA3 IJ; +FISH12002 PO; +HYDR-3927 PO; -LEVO750T45 PO; +LYR25 PO; +MIRT-91 PO; +PHO667 PO; +SIME80TA15 PO; -SODI650T PO; +SSREG SUBCUT; +VITD2000 PO
--- NOTE | 2021-12-30 07:35 | NUR ---
Patient triaged and placed in waiting room. VSS and patient appears in no acute distress at this time. Accompanied by SON, awaiting available bed, and MD notified of need for MSE.
--- NOTE | 2021-12-30 08:02 | NUR ---
BROUGHT BACK TO BED #2 VIA WHEELCHAIR, REPORT GIVEN TO JESSICA
--- NOTE | 2021-12-30 08:25 | NUR ---
SMITH CATHETER REMOVED, PT TOLERATED IT WELL. FAMILY AT BEDSIDE.
--- NOTE | 2021-12-30 08:32 | NUR ---
Patient given written and verbal discharge instructions and verbalizes understanding. ER MD discussed with patient the results and treatment provided. Patient in stable condition. ID arm band removed. Rx of NONE given. Patient educated on pain management and to follow up with PMD. Pain Scale 1/10. Opportunity for questions provided and answered. Medication side effect fact sheet provided.
== END 2021-12-30 08:32 | disposition home or self-care (01) ==
LOC: SED 07:35
DX: Z46.6 Encounter for fitting and adjustment of urinary device (principal); E11.9 Type 2 diabetes mellitus without complications; I10 Essential (primary) hypertension
CPT/HCPCS: 99281; 99283